=== PATIENT | male | born 1965 | race Caucasian/White ===

== ENCOUNTER 2016-10-08 10:41 | Inpatient (IN) | payer OTHER ==
[2016-10-08] VITALS (11 sets, daily range): BP systolic 120–186; BP diastolic 78–115; PULSE 44–54; RESP 16–20; TEMP 96.6–98.2; O2SAT 96–99
[~2016-10-08] VITALS: Ht 175.3 cm; Wt 84.7 kg
[2016-10-08] MEDS ORDERED: ASPIRIN 325 MG TAB PO ONE ×2 (11:00→11:15)
[2016-10-08] MEDS ORDERED: NITROGLYCERIN 0.4 MG SL 25 TABS/BTL SL ONE ×2 (11:00→11:15)
[2016-10-08 11:17] LABS: BASOPHIL % 0.5 % (0.0-2.0); EOSINOPHIL # 0.1 TH/MM3 (0-0.4); EOSINOPHIL % 0.9 % (0.0-4.0); HEMATOCRIT 46.3 % (39.0-51.0); HEMO FLAGS DIFF FINAL; LYMPH % 21.6 % (9.0-44.0); LYMPHOCYTE # 1.6 TH/MM3 (1.0-4.8); MEAN CELL VOLUME 89.1 FL (80.0-100.0); MEAN CORPUSCULAR HEMOGLOBIN 31.7 PG (27.0-34.0); MEAN CORPUSCULAR HGB CONC 35.6 % (32.0-36.0); MONO % 7.3 % (0.0-8.0); NEUT % 69.7 % (16.0-70.0); PLATELET COUNT 206 TH/MM3 (150-450); RED BLOOD COUNT 5.19 MIL/MM3 (4.50-5.90); RED CELL DISTRIBUTION WIDTH 12.3 % (11.6-17.2); WHITE BLOOD COUNT 7.2 TH/MM3 (4.0-11.0)
[2016-10-08 11:26] LABS: APTT (PATIENT) 26.4 SEC (24.3-30.1); PROTHROMBIN TIME - PATIENT 10.5 SEC (9.8-11.6)
[2016-10-08 12:03] LABS: BICARBONATE 28.7 MEQ/L (21.0-32.0); POTASSIUM 4.3 MEQ/L (3.5-5.1)
--- NOTE | 2016-10-08 12:05 | RADRPT ---
EXAM DATE/TIME: 10/08/2016 10:55 [place] COMPARISON: No previous studies available for comparison. INDICATIONS : Chest pain. Shortness of breath. MEDICAL HISTORY : None. SURGICAL HISTORY : None. ENCOUNTER: Initial ACUITY: 1 day PAIN SCORE: 3/10 LOCATION: Bilateral chest FINDINGS: The lungs are clear without infiltrate, nodule, or mass. There is no appreciable pleural effusion fo r technique. Heart and mediastinum are unremarkable. CONCLUSION: No acute cardiopulmonary disease. Roni Beckham MD on October 08, 2016 at 12:02 Board Certified Radiologist. This report was verified electronically.
--- NOTE | 2016-10-08 12:15 | PD ---
HPI Chief Complaint: Chest Pain Time Seen by Provider: 12:10 Travel History International Travel<30 days: No Contact w/Intl Traveler<30days: No Traveled to known affect area: No History of Present Illness HPI 51-year-old male that presents to the ED for evaluation of left-sided chest pain. Per patient she's had this for about an hour. Per patient he was riding a bicycle when this started. Per patient he is pretty active and his heart rate is always slow because of his level of activity. Per patient he does have significant history in the family of cardiac disease including his father having from a heart attack at his age. Patient is reports a remote history of smoking 10 anymore. Patient states that he has no history of hypertension or high cholesterol. Takes no aspirin or any medications of any kind. He is here from [place] visiting for work. He denies any injuries. Per patient he was doing his normal biking when he started developing the pain was like a pressure which shortness of breath and radiation to the left arm. Per patient the pain was 6 out of 10. Exercising and motion made it worse. He has an allergy to penicillin. Denies any other medical problems at this time. No injury. PFS Past Medical History Cardiovascular Problems: Yes (bradycardia) ?: Not Social History Alcohol Use: No Tobacco Use: No (quit 30 years ago. ) Substance Use: No Allergies-Medications (Allergen,Severity, Reaction): Coded Allergies: Penicillin (Verified Allergy, Unknown, 10/08/16) Review of Systems Except as stated in HPI: all other systems reviewed are Neg Physical Exam Narrative GENERAL: SKIN: Warm and dry. HEAD: Atraumatic. Normocephalic. EYES: Pupils equal and round. No scleral icterus. No injection or drainage. ENT: No nasal bleeding or discharge. Mucous membranes pink and moist. Tongue is midline. No uvula deviation. NECK: Trachea midline. No JVD. CARDIOVASCULAR: Regular rate and rhythm. No murmurs, S3, S4. RESPIRATORY: No accessory muscle use. Clear to auscultation. Breath sounds equal bilaterally. GASTROINTESTINAL: Abdomen soft, non-tender, nondistended. Hepatic and splenic margins not palpable. MUSCULOSKELETAL: Extremities without clubbing, cyanosis, or edema. No obvious deformities. Full range of motion of the upper and lower extremities bilaterally. 2+ pulses bilaterally. NEUROLOGICAL: Awake and alert. No obvious cranial nerve deficits. Motor grossly within normal limits. Five out of 5 muscle strength in the arms and legs. Normal speech. PSYCHIATRIC: Appropriate mood and affect; insight and judgment normal. Data Data Last Documented VS Vital Signs Date Time Temp Pulse Resp B/P Pulse Ox O2 Delivery O2 Flow Rate FiO2 10/08/16 11:43 44 18 120/78 98 Room Air 10/08/16 10:56 97.9 10/08/16 10:55 2 Orders Electrocardiogram (10/08/16 10:49) Basic Metabolic Panel (Bmp) (10/08/16 10:49) Ckmb (Isoenzyme) Profile (10/08/16 10:49) Complete Blood Count With Diff (10/08/16 10:49) Magnesium (Mg) (10/08/16 10:49) Prothrombin Time / Inr (Pt) (10/08/16 10:49) Act Partial Throm Time (Ptt) (10/08/16 10:49) Troponin I (10/08/16 10:49) Chest, Single Ap (10/08/16 10:49) Ecg Monitoring (10/08/16 10:49) Bilateral Bp Monitoring (10/08/16 10:49) Iv Access Insert/Monitor (10/08/16 10:49) Oximetry (10/08/16 10:49) Oxygen Administration (10/08/16 10:49) Aspirin (Aspirin) (10/08/16 11:00) Nitroglycerin Sl (Nitrostat Sl) (10/08/16 11:00) Aspirin (Aspirin) (10/08/16 11:15) Nitroglycerin Sl (Nitrostat Sl) (10/08/16 11:15) Admit Order (Ed Use Only) (10/08/16 12:08) Labs Laboratory Tests Test 10/08/16 11:05 White Blood Count 7.2 TH/MM3 Red Blood Count 5.19 MIL/MM3 Hemoglobin 16.5 GM/DL Hematocrit 46.3 % Mean Corpuscular Volume 89.1 FL Mean Corpuscular Hemoglobin 31.7 PG Mean Corpuscular Hemoglobin 35.6 % Concent Red Cell Distribution Width 12.3 % Platelet Count 206 TH/MM3 Mean Platelet Volume 8.1 FL Neutrophils (%) (Auto) 69.7 % Lymphocytes (%) (Auto) 21.6 % Monocytes (%) (Auto) 7.3 % Eosinophils (%) (Auto) 0.9 % Basophils (%) (Auto) 0.5 % Neutrophils # (Auto) 5.0 TH/MM3 Lymphocytes # (Auto) 1.6 TH/MM3 Monocytes # (Auto) 0.5 TH/MM3 Eosinophils # (Auto) 0.1 TH/MM3 Basophils # (Auto) 0.0 TH/MM3 CBC Comment DIFF FINAL Differential Comment Prothrombin Time 10.5 SEC Prothromb Time International 1.0 RATIO Ratio Activated Partial 26.4 SEC Thromboplast Time Sodium Level 139 MEQ/L Potassium Level 4.3 MEQ/L Chloride Level 105 MEQ/L Carbon Dioxide Level 28.7 MEQ/L Anion Gap 5 MEQ/L Blood Urea Nitrogen 11 MG/DL Creatinine 1.19 MG/DL Estimat Glomerular Filtration 64 ML/MIN Rate Random Glucose 108 MG/DL Calcium Level 8.9 MG/DL Magnesium Level 2.0 MG/DL Total Creatine Kinase 79 U/L Troponin I 0.02 NG/ML MDM Medical Decision Making Medical Screen Exam Complete: Yes Emergency Medical Condition: Yes Medical Record Reviewed: Yes Interpretation(s) CBC & BMP Diagram 10/08/16 11:05 troponin negative ckmb negative EKG shows sinus bradycardia with no sign of acute ischemia. Read by me and attending. Chest x-ray negative for acute disease. Differential Diagnosis ACS versus chest pain versus atypical chest pain versus pneumonia versus pneumothorax Narrative Course 51-year-old male that presents to the ED for evaluation of chest pain. Patient was properly examined and was found to have signs and symptoms concerning for ACS. Patient does have significant history including strong family history of cardiac disease as well as age. At this time I recommend cardiac workup. Patient's agreement with this. Initial EKG and labs were essentially unremarkable. Chest x-ray negative. At this time I do recommend admission to the chest pain center because of his risk factors. Patient was given aspirin and nitroglycerin here with relief of the pain but he still feels somewhat no back to normal. Patient was told of recommendation for admission for chest pain center and evaluation by caseworker protective services and he is in agreement with this plan. Patient was admitted to the chest pain center. Procedures EKG Prior to Arrival: No Diagnosis Primary Impression: Chest pain in adult Admitting Information Admitting Physician Requests: Observation Shane Miner Oct 08, 2016 12:15
[2016-10-08] MEDS ORDERED: SODIUM CHLORIDE 0.9% FLUSH 10 ML FLUSH IV FLUSH PRN (12:30)
[2016-10-08] MEDS ORDERED: ONDANSETRON HCL 4 MG/2 ML VIAL IV PRN (12:30)
[2016-10-08] MEDS ORDERED: ACETAMINOPHEN 500 MG CPLT PO PRN (12:30)
[2016-10-08] MEDS ORDERED: NITROGLYCERIN 0.4 MG SL 25 TABS/BTL SL PRN (12:30)
[2016-10-08] MEDS ORDERED: NITROGLYCERIN 2% OINT 1 GM PACKET TOPICAL SCH (14:30)
[2016-10-08 15:08] LABS: CREATINE KINASE 123 U/L (39-308)
--- NOTE | 2016-10-08 15:12 | HHI.HP ---
HPI Primary Care Physician No Primary Care Physician Chief Complaint Chest tightness History of Present Illness 51-year-old male with no significant past medical history presents to the emergency room for further evaluation of chest pain. Onset this morning approximately 9:30 while cycling. Location substernal described as tightness. [place] as though he could not "push himself" to continue cycling or take a deep breath. Normally cycles 20 miles daily without any chest discomfort or difficulty breathing. Chest discomfort began after cycling 3 blocks riding at a slow pace (12-15mph). Radiation to left shoulder however described pain left shoulder and left arm as "aching." He slowed down his pace and cycled back to his hotel. Pain continued rated 5/10. Once back in hotel, felt he was going to pass out and extremely fatigued. He is from [place] and a friend drive him to urgent care. Urgent care immediately sent him to ER. No associated symptoms nausea, vomiting, or diaphoresis. Nitroglycerin sublingual "helped some." Currently he is chest pain-free. Duration of chest discomfort approximately 2 hours, with the most intense pain initially lasting 20 minutes, rate 7/10. Positive family history-father at age 52 from heart attack. No known diabetes, hypertension, or hyperlipidemia. Last week he experienced 2 brief episodes of shortness of breath while cycling on two separate occasions. Review of Systems General: Has been in his general state of health. He is visiting here from [place]. He is a assistant softball coach. Stain until Tuesday. No fatigue,weakness, fever, chills, or recent illness. HEENT: No SZYMANSKI, no vision changes, no nasal congestion or drainage, no dysphasia CV: As stated above. No current chest pain or pressure. RESP: No SOB, cough, wheeze, asthma, recent URI. GI: No nausea, vomiting, bowel changes. . : No dysuria, urgency, or frequency EXT: No lower leg edema, no paraesthesias MS: No discomfort or change in ROM NEURO: No change in memory, dizziness, difficulty with balance, LOC, motor/ sensory deficits PSYCH: No anxiety, depression, or situational stress. SKIN: No rashes, no concerning lesions Past Family Social History Allergies: Coded Allergies: Penicillin (Verified Allergy, Unknown, 10/08/16) Past Medical History None Past Surgical History None Reported Medications Does not require any prescription medications. Active Ordered Medications Current Medications Medications (Trade) Dose Ordered Sig/Octavia Route Start Time Stop Time Status Last Admin (Tylenol) 500 mg Q4H PRN PO 10/08/16 12:30 (Zofran Inj) 4 mg Q6H PRN IV 10/08/16 12:30 (Nitrostat Sl) 0.4 mg Q5M PRN SL 10/08/16 12:30 (Aspirin) 325 mg DAILY PO 10/09/16 09:00 (Nitroglycerin 2% Oint) 0.5 inch Q6HR TOPICAL 10/08/16 14:30 Family History Father at age 52 from MS. Endorses his father "did not take care of himself and smoke and drink alcohol excessively." Mother is alive and well. No cardiac issues. Social History No known diabetes, hyperlipidemia, or hypertension. Lipid panel last checked 3 years ago. Remote tobacco use quit 30 years ago. Denies any alcohol or illegal drug use. He is single. Visiting from [place]. Past cardiac testing No recent stress testing. Exercise stress test approximately 15 years ago. Never required a coke drawer. Physical Exam Vital Signs Vital Signs Date Time Temp Pulse Resp B/P Pulse Ox O2 Delivery O2 Flow Rate FiO2 10/08/16 14:13 96.6 48 20 167/98 99 10/08/16 14:04 97 21 10/08/16 11:43 44 18 120/78 98 Room Air 10/08/16 10:58 45 165/103 143/103 10/08/16 10:56 97.9 44 20 186/108 98 10/08/16 10:55 99 Nasal Cannula 2 10/08/16 10:55 46 18 165/103 98 Nasal Cannula 2 10/08/16 10:55 47 18 99 Nasal Cannula 2 10/08/16 10:55 18 99 Nasal Cannula 2 10/08/16 10:48 46 18 165/103 98 Physical Exam GENERAL: Alert WN, WD, NAD, pleasant, male HEAD: NC, AT EYES: Sclera clear, conjunctiva without injection, pupils equal and round ENT: Mucous membranes pink and moist, no nasal discharge or bleeding NECK: Supple, no masses, trachea midline CV: RRR, without murmur, rub, gallop, no JVD, S1-S2 no S3-S4. No carotid or femoral bruits. RESP: Clear lungs throughout bilateral, no crackles, wheeze, rhonchi, symmetrical chest rise, nonlabored, able to speak in full sentences ABD: Soft, NT, ND, no masses, positive bowel tones EXT: Pulses +24, no dependent edema MS: Normal tone 4 extremities, nontender, no obvious deformities, full range of motion NEURO: CN II through CN XII grossly intact, motor strength 5/5, gait WNL PSYCH: A+O 3, pleasant affect, appropriate speech, appropriate mood and affect , insight and judgment SKIN: Normal turgor, normal texture, no lesions, no rashes, brisk cap refill, even hair distribution Laboratory Laboratory Tests Test 10/08/16 11:05 White Blood Count 7.2 Red Blood Count 5.19 Hemoglobin 16.5 Hematocrit 46.3 Mean Corpuscular Volume 89.1 Mean Corpuscular Hemoglobin 31.7 Mean Corpuscular Hemoglobin 35.6 Concent Red Cell Distribution Width 12.3 Platelet Count 206 Mean Platelet Volume 8.1 Neutrophils (%) (Auto) 69.7 Lymphocytes (%) (Auto) 21.6 Monocytes (%) (Auto) 7.3 Eosinophils (%) (Auto) 0.9 Basophils (%) (Auto) 0.5 Neutrophils # (Auto) 5.0 Lymphocytes # (Auto) 1.6 Monocytes # (Auto) 0.5 Eosinophils # (Auto) 0.1 Basophils # (Auto) 0.0 CBC Comment DIFF FINAL Differential Comment Prothrombin Time 10.5 Prothromb Time International 1.0 Ratio Activated Partial 26.4 Thromboplast Time Sodium Level 139 Potassium Level 4.3 Chloride Level 105 Carbon Dioxide Level 28.7 Anion Gap 5 Blood Urea Nitrogen 11 Creatinine 1.19 Estimat Glomerular Filtration 64 Rate Random Glucose 108 Calcium Level 8.9 Magnesium Level 2.0 Total Creatine Kinase 79 Troponin I 0.02 Result Diagram: 10/08/16 1105 10/08/16 1105 Imaging Last Impressions Chest X-Ray 10/08/16 1049 Signed Impressions: Service Date/Time: Saturday, October 08, 2016 10:55 - CONCLUSION: No acute cardiopulmonary disease. Roni Beckham MD Course EKGs 2 EKGs show normal sinus bradycardic rhythm with nonspecific ST and T-wave changes Assessment and Plan Assessment and Plan #1 Chest painadmitted to chest pain center. Plans initially were to rule out with 3 sets of EKGs, cardiac enzymes, monitor overnight, and perform a chemical stress test in the a.m. Second troponin is now elevated at 1.95. Consult to on -call cardiology as well as hospitalist. Call out to on-call coke drawer. This is been discussed with patient in length. Nitroglycerin topical 0.5 inch every 6 hours. Patient is bradycardiac, will not order beta marti at this time. Keep nothing by mouth at this time until seen by coke drawer. 17:[address] Geronimo. requesting heparin protocol to be ordered and keep patient NPO at this time. Sarah August Oct 08, 2016 15:11
[2016-10-08 15:39] LABS: CKMB 8.6 NG/ML (0.5-3.6)
[2016-10-08] MEDS ORDERED: HEPARIN SODIUM - IV 10,000 UNITS/10 ML VIAL IV ONE (17:30)
[2016-10-08 18:08] LABS: CREATINE KINASE 160 U/L (39-308)
[2016-10-08] MEDS: HEPARIN-D5W INJ 250 ML IV SCH (18:18)
[2016-10-08 18:35] LABS: CKMB 13.9 NG/ML (0.5-3.6)
[2016-10-08] MEDS ORDERED: MIDAZOLAM HCL 2 MG/2 ML VIAL ONE (18:46)
[2016-10-08] MEDS ORDERED: HEPARIN-NS/PF INJ 500 ML ONE (18:46)
[2016-10-08] MEDS ORDERED: VERAPAMIL HCL 5 MG/2 ML VIAL ONE (18:57)
[2016-10-08] MEDS ORDERED: HEPARIN SODIUM - IV 10,000 UNITS/10 ML VIAL ONE (18:58)
[2016-10-08] MEDS ORDERED: PHENYLEPHRINE HCL 10 MG/ML VIAL ONE (19:16)
[2016-10-08] MEDS ORDERED: PHENYLEPH/NS 1000 MCG/10 ML SYR ONE (19:17)
--- NOTE | 2016-10-08 19:24 | EKG ---
Date Performed: 10/08/2016 Time Performed: 10:50:23 PTAGE: 51 years EKG: SINUS BRADYCARDIA Nonspecific ST-T wave changes INTERPRETATION BASED ON A DEFAULT AGE OF 39 YEARS NO PREVIOUS TRACING DOCTOR: Alex Williamson Interpretating Date/Time 10/08/2016 19:22:59
[2016-10-08] MEDS ORDERED: HEPARIN-D5W INJ 250 ML ONE (19:27)
[2016-10-08] MEDS ORDERED: IOHEXOL 350 MG/ML 50 ML BTL (for Cath Lab) OTHER ONE (20:00)
[2016-10-08] MEDS ORDERED: SODIUM CHLORIDE 0.9% FLUSH 10 ML FLUSH IV FLUSH SCH (21:00)
[2016-10-08] MEDS: ATORVASTATIN 80 MG TAB PO SCH (21:47)
[2016-10-08] MEDS: NITROGLYCERIN 2% OINT 1 GM PACKET TOPICAL SCH (21:47)
--- NOTE | 2016-10-08 22:04 | MB ---
cc: DOMINGO CONNOLLY DO DATE OF CONSULTATION 10/08/16 REASON FOR CONSULTATION Chest pain and stenting. HISTORY OF PRESENT ILLNESS Quentin Doherty is a pleasant 51-year-old male who presented to [facility] on October 08, 2016 due to chest pain. He is here visiting from [place] for a conference and he decided that he would go cycling. At around 09:30 this morning during his cycling, he started getting central chest pain which was tight in nature. He normally rides up to 20 miles a day without chest discomfort or difficulty, although the past few weeks it has been more difficult than usual. He was only three blocks into his ride when he started having chest pain today that radiated to his left shoulder which was aching in nature. He slow down his speed and cycled back to his hotel. Pain was still 5/10 and he felt like he was going to pass out and so he had his friend drive him to an Urgent Care. Urgent Care immediately sent him to the emergency room. Nitroglycerin seemed to help somewhat on arrival. When seeing him he is currently chest pain free. PAST MEDICAL HISTORY Denies. PAST SURGICAL HISTORY Denies. ALLERGIES PENICILLIN MEDICATIONS Denies. FAMILY HISTORY Father had bypass at the age of 45 and from an CT at the age of 52. He states that his father did not take care of himself and he smoked and drank excessively. He has two brothers that have high blood pressure. Mother is alive and well with no cardiac issues. SOCIAL HISTORY Remote tobacco use, quitting around 30 years ago. Denies alcohol or illicit drug abuse. He is visiting from [place]. He did have a cholesterol panel done around three years ago and states that his bad cholesterol was a little high but his good cholesterol was low. REVIEW OF SYSTEMS 14-systems were reviewed including osteopathic. Pertinent positives and negatives above, otherwise negative. PHYSICAL EXAMINATION VITAL SIGNS: Temperature 96.6, heart rate 48, blood pressure 167/98, respirations 20, pulse ox 99% on room air. GENERAL: The patient appears well in no acute distress, alert awake and oriented x3. HEENT: Extraocular muscles intact. Mucous membranes moist. NECK: Supple. No JVD at 45 degrees. No carotid bruits heard bilaterally. Carotid upstroke is brisk in nature. HEART: Regular rhythm but bradycardic in nature. Positive first and second heart sounds with no murmurs, gallops or rubs. PMI is nondisplaced. LUNGS: Clear to auscultation bilaterally. No wheezes, rales or rhonchi. ABDOMEN: Soft, nontender, nondistended, no organomegaly noted. EXTREMITIES: No clubbing, cyanosis or edema. Femoral and distal pulses intact bilaterally. NEUROLOGIC: No focal deficits. SKIN: Warm, dry and intact. OSTEOPATHIC: No kyphoscoliosis, lordosis or paraspinal tender points. LABORATORY FINDINGS Hemoglobin 16.5, hematocrit 46.3, platelets 206. Potassium 4.3, BUN 11, creatinine 1.19, troponin 0.02 increasing to 4.75. CARDIOLOGY STUDIES Electrocardiogram (October 08, 2016 at 1714) sinus bradycardia, nonspecific ST-T wave changes. IMPRESSION 1. Chest pain concerning for typical angina. 2. NSTEMI most likely type 1 3. Baseline bradycardia, most likely due to athletic heart. 4. Family history of premature coronary artery disease, although his father did not take care of himself 5. Extremely remote tobacco abuse. RECOMMENDATIONS 1. Mr. Doherty presented with chest pain and has an elevation of his troponins signifying an NSTEMI. Because of this, he was recommended cardiac catheterization. Risks, benefits and alternatives were explained to him and he consented as such. 2. We will check a 2-D echo to look at his overall left ventricular function, cardiac structure and possible valvolpathies. 3. Further recommendations will be made based on coronary visualization. Thank you for allowing me to see Quentin Doherty. If there are any questions, please do not hesitate to call. Domingo Connolly DO VGP/SA /7:51 PM /9:45 PM MTDKelly
[2016-10-08] MEDS ORDERED: HEPARIN SODIUM - IV 10,000 UNITS/10 ML VIAL IV PRN (23:30)
[2016-10-09] VITALS (28 sets, daily range): BP systolic 120–154; BP diastolic 78–98; PULSE 44–79; RESP 16–17; TEMP 97.9–98.2; O2SAT 93–97
[2016-10-09] MEDS: NITROGLYCERIN 2% OINT 1 GM PACKET TOPICAL SCH ×4 (03:00→22:36)
--- NOTE | 2016-10-09 06:28 | MA ---
cc: DOMINGO CONNOLLY DO DATE: October 08, 2016 PROCEDURE Left heart catheterization, coronary angiogram, moderate sedation 25 minutes. PREPROCEDURE DIAGNOSIS N=STEMI, angina concerning for significant coronary insufficiency. POSTPROCEDURE DIAGNOSIS N=STEMI, Multivessel coronary artery disease. MEDICATIONS 1. Versed 1 mg. 2. Fentanyl 25 mcg. 3. Verapamil 2.5 mg. 4. Nitro 200 mcg. 5. Heparin 3000 units. CONTRAST USED 45 cc. FLUOROSCOPY: 4.4 minutes SEDATION: Moderate sedation 25 minutes PROCEDURAL SUMMARY: Quentin Doherty is a pleasant 51-year-old male who presented to [facility] due to significant chest pain. He was found to have an elevated troponin and because of his chest pain and elevation of troponin he was suggested to undergo cardiac catheterization. Risks, benefits and alternatives were explained to him and he consented as such. He was brought to lab and prepped in the usual sterile fashion. Right radial artery was accessed using modified Seldinger technique and placement of a 5/6 Amharic sheath. This was easily aspirated and flushed. JR-4 was then advanced over a J-wire into the left ventricle and left ventricular end-diastolic pressure was recorded. This was pulled back across the aortic valve showing no significant gradient of aortic stenosis. JR-4 was used for selective angiography of the right coronary system. This was exchanged for a JL-3.5 which was used for selective angiography of the left coronary system. The JL-3.5 was removed over a J-wire and radial band was placed over the arterial ostomy site for hemostasis. The patient left the ammunition assembly laborer cardiovascularly stable. FINDINGS Left main, normal size with no significant disease. Left anterior descending, overall normal-appearing vessel. The proximal to midportion across the first diagonal has significant disease diffusely of 80% which is at least 20 mm long. The distal part of the left anterior descending has no significant disease. The left anterior descending gives off a small first diagonal and a larger second diagonal with no significant disease. Left circumflex, is a large normal-appearing vessel with a 70% lesion in the midportion. He gives off three major obtuse marginals with no significant disease. Ramus, The ramus appears to be a normal-size vessel and has a 95% proximal lesion mows noted in the right anterior oblique caudal and Right anterior oblique cranial views. Right coronary artery is a normal-size vessel with a 99% lesion in the midportion. There is a 70% lesion in the distal portion. It gives off a posterior descending artery which has a 95% lesion in a small vessel distally. Left ventricular end-diastolic pressure 16. IMPRESSION 1. Chest pain concerning for coronary insufficiency. 2. N-STEMI type 1. 3. Multivessel coronary artery disease with significant disease as above. 4. Baseline bradycardia, most likely due to athletic heart. RECOMMENDATIONS 1. Because Mr. Doherty has multivessel coronary artery disease including the proximal and mid left anterior descending, ramus, left circumflex and right coronary artery. My recommendation is that he undergo coronary artery bypass. grafting. 2. I spoke with CT surgery will evaluate him tomorrow. 3. Because of the significance of his disease as well as his elevated troponin. We will plan on place him back on a heparin drip 1 hour after his TR band is removed. 4. We will check a 2-D echo to look at his overall left ventricular function, cardiac structure and possible valvopathies. 5. Beta-marti will be avoided at this time due to his baseline bradycardia. Thank you for allowing me to see Quentin Doherty, if there are any questions, please do not hesitate to call. Domingo Connolly DO VGP/mh /8:00 PM /6:18 AM
[2016-10-09 08:05] LABS: AUTOMATED NEUTROPHIL # 4.4 TH/MM3 (1.8-7.7); BASOPHIL % 0.2 % (0.0-2.0); EOSINOPHIL # 0.1 TH/MM3 (0-0.4); EOSINOPHIL % 1.3 % (0.0-4.0); HEMATOCRIT 42.6 % (39.0-51.0); HEMO FLAGS DIFF FINAL; LYMPH % 25.8 % (9.0-44.0); LYMPHOCYTE # 1.7 TH/MM3 (1.0-4.8); MEAN CELL VOLUME 89.3 FL (80.0-100.0); MEAN CORPUSCULAR HEMOGLOBIN 31.2 PG (27.0-34.0); MONO % 7.2 % (0.0-8.0); NEUT % 65.5 % (16.0-70.0); PLATELET COUNT 183 TH/MM3 (150-450); RED BLOOD COUNT 4.77 MIL/MM3 (4.50-5.90); RED CELL DISTRIBUTION WIDTH 12.4 % (11.6-17.2); WHITE BLOOD COUNT 6.7 TH/MM3 (4.0-11.0)
[2016-10-09 08:06] LABS: APTT (PATIENT) 33.2 SEC (24.3-30.1)
[2016-10-09 08:32] LABS: POTASSIUM 3.8 MEQ/L (3.5-5.1)
[2016-10-09] MEDS: HEPARIN SODIUM - IV 10,000 UNITS/10 ML VIAL IV PRN ×3 (08:37→22:35)
[2016-10-09] MEDS ORDERED: INSULIN REGULAR (IV INFUSION) 100 UNITS in SODIUM CHLORIDE 0.9% INJ 100 ML IV SCH (08:45)
[2016-10-09] MEDS ORDERED: PAPAVERINE INJ 60 MG, NITROGLYCERIN INJ 100 MCG, DILTIAZEM INJ 100 MG in SODIUM CHLORID... IRRIGATION SCH (08:45)
[2016-10-09] MEDS ORDERED: SODIUM CHLORIDE 0.9% FLUSH 10 ML FLUSH IV FLUSH PRN (08:45)
[2016-10-09] MEDS ORDERED: VANCOMYCIN INJ 1,250 MG in SODIUM CHLOR 0.9% 250 ML INJ 250 ML IV SCH (08:45)
[2016-10-09] MEDS ORDERED: VANCOMYCIN INJ 1,000 MG in SODIUM CHLORIDE 0.9% IRR BTL 1,000 ML IRRIGATION SCH (08:45)
[2016-10-09] MEDS ORDERED: CHLORHEXIDINE GLUCONATE 4% SOLN 120 ML BTL TOPICAL SCH (08:45)
[2016-10-09] MEDS ORDERED: ASPIRIN 81 MG CHEW TAB CHEW SCH (09:00)
[2016-10-09] MEDS: SODIUM CHLORIDE 0.9% FLUSH 10 ML FLUSH IV FLUSH SCH ×2 (09:00→22:36)
[2016-10-09] MEDS ORDERED: ASPIRIN 325 MG TAB PO SCH (09:00)
[2016-10-09] MEDS: MUPIROCIN 2% OINT 1 APPLIC/GM SYR EACH NARE SCH ×2 (09:34→22:35)
--- NOTE | 2016-10-09 10:04 | PD.CAR.PN ---
CVT Progress Note Subjective/Hospital Course: RISK SCORES About the STS Risk Calculator Procedure: CAB Only Risk of Mortality: 0.419% Morbidity or Mortality: 6.829% Long Length of Stay: 1.684% Short Length of Stay: 73.265% Permanent Stroke: 0.318% Prolonged Ventilation: 4.304% DSW Infection: 0.189% Renal Failure: 1.042% Reoperation: 3.316 ECHO pending to evaluate EF and valve function. Objective: Vital Signs Date Time Temp Pulse Resp B/P Pulse Ox O2 Delivery O2 Flow Rate FiO2 10/09/16 10:00 16 10/09/16 09:00 58 10/09/16 08:00 46 10/09/16 07:00 98.0 51 16 135/81 96 10/09/16 07:00 50 10/09/16 06:34 48 10/09/16 05:01 95 10/09/16 05:00 44 10/09/16 04:00 47 10/09/16 03:00 97.9 57 16 120/78 95 10/09/16 03:00 45 10/09/16 02:00 45 10/09/16 01:00 46 10/09/16 00:00 48 10/08/16 23:00 48 10/08/16 23:00 98.0 50 17 146/96 96 10/08/16 22:00 48 10/08/16 21:00 54 10/08/16 20:00 54 10/08/16 20:00 98.2 52 16 169/115 97 10/08/16 14:13 96.6 48 20 167/98 99 10/08/16 14:04 97 21 10/08/16 11:43 44 18 120/78 98 Room Air 10/08/16 10:58 45 165/103 143/103 10/08/16 10:56 97.9 44 20 186/108 98 10/08/16 10:55 99 Nasal Cannula 2 10/08/16 10:55 46 18 165/103 98 Nasal Cannula 2 10/08/16 10:55 47 18 99 Nasal Cannula 2 10/08/16 10:55 18 99 Nasal Cannula 2 10/08/16 10:48 46 18 165/103 98 Labs: Laboratory Tests Test 10/09/16 07:26 White Blood Count 6.7 TH/MM3 (4.0-11.0) Red Blood Count 4.77 MIL/MM3 (4.50-5.90) Hemoglobin 14.9 GM/DL (13.0-17.0) Hematocrit 42.6 % (39.0-51.0) Mean Corpuscular Volume 89.3 FL (80.0-100.0) Mean Corpuscular Hemoglobin 31.2 PG (27.0-34.0) Mean Corpuscular Hemoglobin 35.0 % Concent (32.0-36.0) Red Cell Distribution Width 12.4 % (11.6-17.2) Platelet Count 183 TH/MM3 (150-450) Mean Platelet Volume 8.0 FL (7.0-11.0) Neutrophils (%) (Auto) 65.5 % (16.0-70.0) Lymphocytes (%) (Auto) 25.8 % (9.0-44.0) Monocytes (%) (Auto) 7.2 % (0.0-8.0) Eosinophils (%) (Auto) 1.3 % (0.0-4.0) Basophils (%) (Auto) 0.2 % (0.0-2.0) Neutrophils # (Auto) 4.4 TH/MM3 (1.8-7.7) Lymphocytes # (Auto) 1.7 TH/MM3 (1.0-4.8) Monocytes # (Auto) 0.5 TH/MM3 (0-0.9) Eosinophils # (Auto) 0.1 TH/MM3 (0-0.4) Basophils # (Auto) 0.0 TH/MM3 (0-0.2) CBC Comment DIFF FINAL Differential Comment Activated Partial 33.2 SEC Thromboplast Time (24.3-30.1) Sodium Level 140 MEQ/L (136-145) Potassium Level 3.8 MEQ/L (3.5-5.1) Chloride Level 106 MEQ/L (98-107) Carbon Dioxide Level 25.0 MEQ/L (21.0-32.0) Anion Gap 9 MEQ/L (5-15) Blood Urea Nitrogen 13 MG/DL (7-18) Creatinine 1.09 MG/DL (0.60-1.30) Estimat Glomerular Filtration 71 ML/MIN (>89) Rate Random Glucose 101 MG/DL (74-106) Calcium Level 8.6 MG/DL (8.5-10.1) Result Diagram: 10/09/16 0726 10/09/16 0726 Robert Ball MD Oct 09, 2016 10:04
--- NOTE | 2016-10-09 10:06 | HHI.PR ---
Subjective Remarks Follow up on multiple vessels CAD plan for CABG in the morning Discussed with the nurse Patient is having carotid ultrasound, no chest pain at this point Objective Vitals Vital Signs Date Time Temp Pulse Resp B/P Pulse Ox O2 Delivery O2 Flow Rate FiO2 10/09/16 10:00 16 10/09/16 09:00 58 10/09/16 08:00 46 10/09/16 07:00 98.0 51 16 135/81 96 10/09/16 07:00 50 10/09/16 06:34 48 10/09/16 05:01 95 10/09/16 05:00 44 10/09/16 04:00 47 10/09/16 03:00 97.9 57 16 120/78 95 10/09/16 03:00 45 10/09/16 02:00 45 10/09/16 01:00 46 10/09/16 00:00 48 10/08/16 23:00 48 10/08/16 23:00 98.0 50 17 146/96 96 10/08/16 22:00 48 10/08/16 21:00 54 10/08/16 20:00 54 10/08/16 20:00 98.2 52 16 169/115 97 10/08/16 14:13 96.6 48 20 167/98 99 10/08/16 14:04 97 21 10/08/16 11:43 44 18 120/78 98 Room Air 10/08/16 10:58 45 165/103 143/103 10/08/16 10:56 97.9 44 20 186/108 98 10/08/16 10:55 99 Nasal Cannula 2 10/08/16 10:55 46 18 165/103 98 Nasal Cannula 2 10/08/16 10:55 47 18 99 Nasal Cannula 2 10/08/16 10:55 18 99 Nasal Cannula 2 10/08/16 10:48 46 18 165/103 98 I/O 10/08/16 10/08/16 10/08/16 10/09/16 10/09/16 10/09/16 07:00 15:00 23:00 07:00 15:00 23:00 Intake Total 1030 ml Output Total 980 ml Balance 50 ml Intake Oral 480 ml IV Total 550 ml Output Urine Total 980 ml Result Diagram: 10/09/1672510/09/16725 Objective Remarks GENERAL: This is a well-nourished, well-developed patient, in no apparent distress. SKIN: No rashes, warm and dry HEAD: Atraumatic. Normocephalic. EYES: Pupils equal round and reactive. Extraocular motions intact. No scleral icterus. ENT: Nose without bleeding, or drainage, Airway patent. NECK: Trachea midline. Supple CARDIOVASCULAR: Regular rate and rhythm without murmurs, gallops, or rubs. RESPIRATORY: Fair air entry bilaterally. No wheezes, rales, or rhonchi. GASTROINTESTINAL: Abdomen soft, non-tender, nondistended. Positive bowel sounds MUSCULOSKELETAL: Extremities without clubbing, cyanosis, or edema. Pedal pulses appreciated NEUROLOGICAL: Awake and alert. Moves all extremity. Normal speech.no focal neurological deficit A/P Assessment and Plan Chest pain Non-STEMI status post heart catheter >> multiple vessels CAD with proximal LAD Bradycardia most likely due to athletic heart History of premature CAD Remotely tobacco abuse DVT prophylaxis patient on heparin drip Plan:: Patient is status post left heart catheter Cardiology recommended CABG, CVS consulted Patient back on heparin drip per cardiology recommendation Avoid beta marti at this time due to bradycardia Aspirin, nitroglycerin, high intensity statin with Lipitor 80 mg started Further plan per certified hyperbaric technician Dez Gallo MD Oct 09, 2016 10:06
--- NOTE | 2016-10-09 10:23 | PD.CARD.PN ---
Subjective Subjective Remarks No chest pain, no shortness of breath Feels anxious overall for the procedure Objective Medications Current Medications Medications (Trade) Dose Ordered Sig/Octavia Route Start Time Stop Time Status Last Admin (Tylenol) 500 mg Q4H PRN PO 10/08/16 12:30 10/09/16 09:09 (Zofran Inj) 4 mg Q6H PRN IV 10/08/16 12:30 (Nitrostat Sl) 0.4 mg Q5M PRN SL 10/08/16 12:30 (Heparin Inj) 5,000 units UNSCH PRN IV 10/08/16 23:30 Heparin Sodium (Porcine) 2500 units 2,500 units UNSCH PRN IV 10/08/16 23:30 10/09/16 08:37 (Heparin-D5W Inj) 250 ml @ 0 mls/hr TITRATE IV 10/08/16 17:30 10/08/16 18:18 (Nitroglycerin 2% Oint) 0.5 inch Q6H TOPICAL 10/08/16 21:00 10/09/16 08:37 (Aspirin Chew) 81 mg DAILY CHEW 10/09/16 09:00 10/09/16 08:36 (Lipitor) 80 mg HS PO 10/08/16 21:00 10/08/16 21:47 (NS Flush) 2 ml BID IV FLUSH 10/09/16 09:00 10/09/16 09:00 (NS Flush) 2 ml UNSCH PRN IV FLUSH 10/09/16 08:45 (Bactroban Nasal 2% Oint) 1 applic BID EACH NARE 10/09/16 09:00 10/14/16 08:59 10/09/16 09:34 Vital Signs / I&O Vital Signs Date Time Temp Pulse Resp B/P Pulse Ox O2 Delivery O2 Flow Rate FiO2 10/09/16 10:00 70 10/09/16 10:00 16 10/09/16 09:00 58 10/09/16 08:00 46 10/09/16 07:00 98.0 51 16 135/81 96 10/09/16 07:00 50 10/09/16 06:34 48 10/09/16 05:01 95 10/09/16 05:00 44 10/09/16 04:00 47 10/09/16 03:00 97.9 57 16 120/78 95 10/09/16 03:00 45 10/09/16 02:00 45 10/09/16 01:00 46 10/09/16 00:00 48 10/08/16 23:00 48 10/08/16 23:00 98.0 50 17 146/96 96 10/08/16 22:00 48 10/08/16 21:00 54 10/08/16 20:00 54 10/08/16 20:00 98.2 52 16 169/115 97 10/08/16 14:13 96.6 48 20 167/98 99 10/08/16 14:04 97 21 10/08/16 11:43 44 18 120/78 98 Room Air 10/08/16 10:58 45 165/103 143/103 10/08/16 10:56 97.9 44 20 186/108 98 10/08/16 10:55 99 Nasal Cannula 2 10/08/16 10:55 46 18 165/103 98 Nasal Cannula 2 10/08/16 10:55 47 18 99 Nasal Cannula 2 10/08/16 10:55 18 99 Nasal Cannula 2 10/08/16 10:48 46 18 165/103 98 I/O 10/08/16 10/08/16 10/08/16 10/09/16 10/09/16 10/09/16 07:00 15:00 23:00 07:00 15:00 23:00 Intake Total 1030 ml Output Total 980 ml Balance 50 ml Intake Oral 480 ml IV Total 550 ml Output Urine Total 980 ml Physical Exam GENERAL: NAD, AAOx3 SKIN: Warm and dry. HEAD: Atraumatic. Normocephalic. EYES: Pupils equal and round. No scleral icterus. No injection or drainage. ENT: No nasal bleeding or discharge. Mucous membranes pink and moist. NECK: Trachea midline. No JVD. CARDIOVASCULAR: Regular rate and rhythm. RESPIRATORY: No accessory muscle use. Clear to auscultation. Breath sounds equal bilaterally. GASTROINTESTINAL: Abdomen soft, non-tender, nondistended. Hepatic and splenic margins not palpable. MUSCULOSKELETAL: Extremities without clubbing, cyanosis, or edema. No obvious deformities. Right radial no hematoma neurovascularly intact distally NEUROLOGICAL: Awake and alert. No obvious cranial nerve deficits. Motor grossly within normal limits. Five out of 5 muscle strength in the arms and legs. Normal speech. PSYCHIATRIC: Appropriate mood and affect; insight and judgment normal. Laboratory Laboratory Tests Test 10/08/16 10/08/16 10/08/16 10/09/16 11:05 14:10 17:10 07:26 White Blood Count 7.2 TH/MM3 6.7 TH/MM3 Red Blood Count 5.19 MIL/MM3 4.77 MIL/MM3 Hemoglobin 16.5 GM/DL 14.9 GM/DL Hematocrit 46.3 % 42.6 % Mean Corpuscular Volume 89.1 FL 89.3 FL Mean Corpuscular Hemoglobin 31.7 PG 31.2 PG Mean Corpuscular Hemoglobin 35.6 % 35.0 % Concent Red Cell Distribution Width 12.3 % 12.4 % Platelet Count 206 TH/MM3 183 TH/MM3 Mean Platelet Volume 8.1 FL 8.0 FL Neutrophils (%) (Auto) 69.7 % 65.5 % Lymphocytes (%) (Auto) 21.6 % 25.8 % Monocytes (%) (Auto) 7.3 % 7.2 % Eosinophils (%) (Auto) 0.9 % 1.3 % Basophils (%) (Auto) 0.5 % 0.2 % Neutrophils # (Auto) 5.0 TH/MM3 4.4 TH/MM3 Lymphocytes # (Auto) 1.6 TH/MM3 1.7 TH/MM3 Monocytes # (Auto) 0.5 TH/MM3 0.5 TH/MM3 Eosinophils # (Auto) 0.1 TH/MM3 0.1 TH/MM3 Basophils # (Auto) 0.0 TH/MM3 0.0 TH/MM3 CBC Comment DIFF FINAL DIFF FINAL Differential Comment Prothrombin Time 10.5 SEC Prothromb Time International 1.0 RATIO Ratio Activated Partial 26.4 SEC 33.2 SEC Thromboplast Time Sodium Level 139 MEQ/L 140 MEQ/L Potassium Level 4.3 MEQ/L 3.8 MEQ/L Chloride Level 105 MEQ/L 106 MEQ/L Carbon Dioxide Level 28.7 MEQ/L 25.0 MEQ/L Anion Gap 5 MEQ/L 9 MEQ/L Blood Urea Nitrogen 11 MG/DL 13 MG/DL Creatinine 1.19 MG/DL 1.09 MG/DL Estimat Glomerular Filtration 64 ML/MIN 71 ML/MIN Rate Random Glucose 108 MG/DL 101 MG/DL Calcium Level 8.9 MG/DL 8.6 MG/DL Magnesium Level 2.0 MG/DL Total Creatine Kinase 79 U/L 123 U/L 160 U/L Troponin I 0.02 NG/ML 1.95 NG/ML 4.75 NG/ML Creatine Kinase MB 8.6 NG/ML 13.9 NG/ML Assessment and Plan Problem List: (1) NSTEMI (non-ST elevated myocardial infarction) (2) Chest pain in adult (3) Multiple vessel coronary artery disease (4) Bradycardia Assessment and Plan 1) MVCAD with plan for CABG in the morning by Dr. Ball 2) 2D echo pending 3) Continue heparin drip 4) No BB due to baseline bradycardia Domingo Geronimo DO Oct 09, 2016 10:23
--- NOTE | 2016-10-09 12:06 | MB ---
cc: JOSH MEYERS M.D. DATE OF CONSULTATION: 10/09/2016 At 9:56 a.m. REFERRING PHYSICIAN: Dr. Geronimo. REASON FOR CONSULTATION: Acute myocardial infarction with coronary artery disease. HISTORY OF PRESENT ILLNESS: Mr. Doherty is a very pleasant 51-year gentleman who presented to the [facility] yesterday with progressive onset of substernal chest discomfort described as a pressure sensation. The patient is here visiting for the weekend from [place] at a conference and the symptoms were brought on with exertion involving cycling. Following evaluation in the emergency department and in the hospital, he was noted to have a non-ST elevation myocardial infarction with elevated troponin levels. Based on this he was in the cath lab tech yesterday and underwent the coronary angiogram which revealed multivessel coronary artery disease. I am now being consulted for surgical vascular therapy. At present time he remains pain free, hemodynamically stable with no evidence of ongoing ischemia. PAST MEDICAL HISTORY: Past medical history is unremarkable. He is fairly healthy. PAST SURGICAL HISTORY: Unremarkable. ALLERGIES The patient reports allergies to PENICILLIN MEDICATIONS ON ADMISSION None. SOCIAL HISTORY: Social history is significant for remote history of smoking which he quit 30 years ago. Denies any excessive alcohol use illicit use or drug use. FAMILY HISTORY: Family history is significant for premature coronary disease in his father. As well as high blood pressure in the siblings. REVIEW OF SYSTEMS None. All other parameters are negative. PHYSICAL EXAMINATION: VITAL SIGNS: Physical emanation today he is 175 cm tall, weighs 75 kg, blood pressure is 135/81 with a heart rate of 48, 851, respiratory is 18 and he is afebrile. HEAD, EYES, EARS, NOSE, AND THROAT: Normocephalic, atraumatic. Pupils are reactive. Extraocular muscles intact. NECK: No cervical lymphadenopathy, carotid bruits or JVD. CARDIOVASCULAR SYSTEM: Regular rate and rhythm. Normal S1-S2 without gallops, rubs or murmurs. LUNGS: The lungs are clear to auscultation bilaterally with good exchange. ABDOMEN: The abdomen is soft, nontender, nondistended with normoactive bowel sounds, no hepatosplenomegaly. EXTREMITIES: Bilateral lower extremity pulses are intact without cyanosis, edema and venous varicosities. NEUROLOGICAL: Intact with no focal deficits. IMPRESSION 1. Coronary artery disease. 2. [id number] myocardial infarction. 3. Remote history nicotine use. PLAN The clinical and angiographic findings were discussed in detail with the patient. Therapeutic options available including coronary artery bypass grafting was recommended. I agree with Dr. Geronimo that he will maximally benefit bypasses to the LAD, ramus, OM, as well as the distal right coronary artery distributions. The risks, complications, benefits of surgical proceed with us in detail and all questions answered. He appears to comprehend the given admission and wishes to proceed with the planned operation. We will proceed with surgical procedure as described above. Tomorrow morning on urgent basis. In the meantime we will obtain an echocardiogram to evaluate his LV function as well as pulmonary function tests vein mappings and carotid ultrasound. Thank you for allowing me to participate with this patient. Robert Salmeron /9:59 AM /11:18 AM [facility]IANA
--- NOTE | 2016-10-09 13:39 | RADRPT ---
EXAM DATE/TIME: 10/09/2016 10:39 [facility] COMPARISON: No previous studies available for comparison. INDICATIONS : Preop cardiac surgery. MEDICAL HISTORY : Cardiac disorders. Bradycardia. SURGICAL HISTORY : Cardiac cath. ENCOUNTER: Initial ACUITY: 2 days PAIN SCORE: 0/10 LOCATION: Bilateral neck PEAK SYSTOLIC VELOCITIES (cm/sec): ICA/CCA RATIO: Right: 1.0 Left: 0.8 ICA: Right: 83 Left: 70 CCA: Right: 84 Left: 88 ECA: Right: 89 Left: 112 VERTEBRAL: Right: 34 antegrade Left: 41 antegrade Elevated flow velocities and ICA/CCA ratios have been found to correlate with increased degrees of vessel stenosis, calculated as percentage of diameter relative to a normal segment of distal ICA/CCA FINDINGS: RIGHT CAROTID: No significant stenosis is visualized. The waveforms are within normal limits. LEFT CAROTID: Minimal plaque is seen at the carotid bulb region. No significant stenosis is visualized. The wavefo micki are within normal limits. VERTEBRAL ARTERIES: Antegrade flow is seen in both vertebral arteries. MISCELLANEOUS: None. CONCLUSION: Minimal plaque at the left carotid bulb region. Significant stenosis is not seen. Corey Carrera MD on October 09, 2016 at 13:36 Board Certified Radiologist. This report was verified electronically.
--- NOTE | 2016-10-09 13:39 | RADRPT ---
EXAM DATE/TIME: 10/09/2016 10:53 [facility] COMPARISON: No previous studies available for comparison. INDICATIONS : Preop cardiac surgery. MEDICAL HISTORY : Cardiac disorders. Bradycardia. SURGICAL HISTORY : Cardiac cath. ENCOUNTER: Initial ACUITY: 2 day PAIN SCORE: 0/10 LOCATION: Bilateral leg. TECHNIQUE: Venous ultrasound of the left and right leg was performed from the inguinal ligament to the proximal calf. Real-time, color Doppler and spectral tracing, compression and augmentation techniques were us ed. FINDINGS: RIGHT LEG: There is normal compressibility of the deep venous system from the inguinal region to the proximal ca lf. No echogenic clot is seen in the lumen of the common femoral, femoral, popliteal, and posterior tibial veins. There is a normal response of the venous system to proximal and distal augmentation an d respiration. LEFT LEG: There is normal compressibility of the deep venous system from the inguinal region to the proximal ca lf. No echogenic clot is seen in the lumen of the common femoral, femoral, popliteal, and posterior tibial veins. There is a normal response of the venous system to proximal and distal augmentation an d respiration. CONCLUSION: No DVT. Corey Carrera MD on October 09, 2016 at 13:37 Board Certified Radiologist. This report was verified electronically.
--- NOTE | 2016-10-09 13:40 | RADRPT ---
EXAM DATE/TIME: 10/09/2016 11:01 [facility] COMPARISON: No previous studies available for comparison. INDICATIONS : Preop cardiac surgery. MEDICAL HISTORY : Cardiac disorders. Bradycardia. SURGICAL HISTORY : Cardiac cath. ENCOUNTER: Initial ACUITY: 2 day PAIN SCORE: 0/10 LOCATION: Bilateral leg. GREATER SAPHENOUS VEIN THIGH: PROXIMAL: Right 3 mm Left 4 mm MID: Right 4 mm Left 4 mm DISTAL: Right 3 mm Left 3 mm CALF: PROXIMAL: Right 3 mm Left 2 mm MID: Right 2 mm Left 1 mm DISTAL: Right 2 mm Left 1 mm FINDINGS: The venous system of the lower extremities are patent by color Doppler imaging. Measurements of the leg veins (in mm) are listed above. CONCLUSION: Venous mapping as delineated above. Corey Carrera MD on October 09, 2016 at 13:38 Board Certified Radiologist. This report was verified electronically.
[2016-10-09] MEDS ORDERED: LORazepam 1 MG TAB PO PRN (15:00)
[2016-10-09 15:41] LABS: APTT (PATIENT) 37.8 SEC (24.3-30.1)
--- NOTE | 2016-10-09 15:52 | EC ---
Study Study Date:10/09/2016 STUDY CONCLUSIONS SUMMARY LEFT VENTRICLE: The cavity size was normal. Wall thickness was normal. Systolic function was normal. The estimated ejection fraction was in the range of 50% to 55%. Wall motion was normal; there were no regional wall motion abnormalities. If LV function is below 40, please consider prescribing an ACEI or ARB or document rationale for non-use. PROCEDURE DATA STUDY STATUS: Elective. Procedure: Transthoracic echocardiography. Image quality was good. Scanning was performed from the parasternal, apical, and subcostal acoustic windows. Study completion: The patient tolerated the procedure well. Transthoracic echocardiography. M-mode, complete 2D, complete spectral Doppler, and color Doppler. Patient status: Inpatient. CARDIAC ANATOMY LEFT VENTRICLE: The cavity size was normal. Wall thickness was normal. Systolic function was normal. The estimated ejection fraction was in the range of 50% to 55%. Wall motion was normal; there were no regional wall motion abnormalities. AORTIC VALVE: Trileaflet; normal thickness leaflets. Doppler: Transvalvular velocity was within the normal range. There was no stenosis. No regurgitation. Peak gradient: 16mm Hg (S). AORTA: Aortic root: The aortic root was normal in size. MITRAL VALVE: Structurally normal valve. Doppler: Transvalvular velocity was within the normal range. There was no evidence for stenosis. No regurgitation. Peak gradient: 2mm Hg (D). LEFT ATRIUM: The atrium was normal in size. RIGHT VENTRICLE: The cavity size was normal. Wall thickness was normal. PULMONIC VALVE: Doppler: Transvalvular velocity was within the normal range. There was no evidence for stenosis. No regurgitation. TRICUSPID VALVE: Structurally normal valve. Doppler: Transvalvular velocity was within the normal range. Trace regurgitation. PULMONARY ARTERY: The main pulmonary artery was normal-sized. Systolic pressure was within the normal range. RIGHT ATRIUM: The atrium was normal in size. PERICARDIUM: There was no pericardial effusion. SYSTEMIC VEINS: Inferior vena cava: The vessel was normal in size. BASIC MEASUREMENTS ADULT Normal Left ventricle LV internal dimension, ED, chordal level, *53.8 mm 43-52 PLAX LV internal dimension, ES, chordal level, *42 mm 23-38 PLAX Fractional shortening, chordal level, PLAX *22 % >29 LV posterior wall thickness, ED 8.13 mm IVS/LVPW ratio, ED *1.7 <1.3 Ventricular septum Septal thickness, ED 13.8 mm Aortic valve Leaflet separation 21 mm 15-26 Left atrium Anterior-posterior dimension 37 mm BASIC MEASUREMENTS ADULT Normal Aortic valve Leaflet separation 21 mm 15-26 Aorta Root diameter, ED 29 mm 20-37 DOPPLER MEASUREMENTS ADULT Normal Main pulmonary artery Pressure, S 23 mm Hg =30 Aortic valve Peak velocity, S 202 cm/s Peak gradient, S 16 mm Hg Mitral valve Peak E-wave velocity 72.6 cm/s Peak A-wave velocity 62.7 cm/s Peak gradient, D 2 mm Hg Peak E/A ratio 1.2 Tricuspid valve Regurgitant peak velocity 209 cm/s Peak RV-RA gradient, S 17 mm Hg Maximal regurgitant velocity 209 cm/s Systemic veins Estimated CVP 5 mm Hg Right ventricle RV pressure, S 23 mm Hg <30 LEGEND: Mean values are shown as u=mean value. Asterisk (*) heath values outside specified normal range. Prepared and signed by Alex Williamson [id number]
[2016-10-09 21:37] LABS: APTT (PATIENT) 39.3 SEC (24.3-30.1)
[2016-10-09] MEDS: HEPARIN-D5W INJ 250 ML IV SCH (22:34)
[2016-10-09] MEDS: ATORVASTATIN 80 MG TAB PO SCH (22:35)
[2016-10-10] VITALS (25 sets, daily range): BP systolic 108–142; BP diastolic 60–96; PULSE 39–86; RESP 15–18; TEMP 97.7–100; O2SAT 92–99
[2016-10-10] MEDS: NITROGLYCERIN 2% OINT 1 GM PACKET TOPICAL SCH (03:00)
[2016-10-10 03:51] LABS: APTT (PATIENT) 56.8 SEC (24.3-30.1)
[2016-10-10] MEDS ORDERED: NITROGLYCERIN-DEXTROSE INJ 250 ML IV ONE (05:00)
[2016-10-10] MEDS ORDERED: GLYCOPYRROLATE 0.2 MG/ML VIAL IV ONE (05:00)
[2016-10-10] MEDS ORDERED: MAGNESIUM SULFATE 1000 MG/2 ML VIAL (PED) IV ONE (05:00)
[2016-10-10] MEDS ORDERED: ARTIFICIAL TEARS OPTH OINT 3.5 APPLIC/3.5 GM TUBO ONE (05:00)
[2016-10-10] MEDS ORDERED: NEOSTIGMINE METHYLSULFATE 10 MG/10 ML VIAL IV PUSH ONE (05:00)
[2016-10-10] MEDS ORDERED: HEPARIN SODIUM - SQ 10,000 UNITS/ML VIAL SQ ONE (05:00)
[2016-10-10] MEDS ORDERED: PROTAMINE SULFATE 250 MG/25 ML VIAL IV ONE (05:00)
[2016-10-10] MEDS ORDERED: VANCOMYCIN HCL 1000 MG VIAL ONE (07:28)
[2016-10-10] MEDS ORDERED: HEPARIN SODIUM - SQ 10,000 UNITS/ML VIAL ONE (07:29)
[2016-10-10] MEDS: MUPIROCIN 2% OINT 1 APPLIC/GM SYR EACH NARE SCH ×2 (09:00→21:00)
[2016-10-10] MEDS ORDERED: SODIUM CHLOR 0.9% 250 ML INJ 250 ML IV ONE (11:27)
[2016-10-10] MEDS ORDERED: SODIUM CHLORID 0.9% 500 ML INJ 500 ML IV ONE (11:27)
[2016-10-10] MEDS ORDERED: LACTATED RINGER'S 1000 ML INJ 2,000 ML IV ONE (11:27)
[2016-10-10] MEDS ORDERED: SODIUM CHLORIDE 0.9% INJ 100 ML IV ONE (11:27)
[2016-10-10] MEDS ORDERED: NORMOSOL R INJ 2,000 ML IV ONE (11:28)
[2016-10-10] MEDS: DOBUTamine PREMIX DRIP 250 ML IV SCH (12:32)
[2016-10-10] MEDS ORDERED: LACTATED RINGER'S 1000 ML INJ 500 ML IV PRN (12:32)
--- NOTE | 2016-10-10 12:39 | PD.OP ---
cc: Robert Ball MD; Domingo Geronimo DO Operative Report Date of Surgery: Oct 10, 2016 Preoperative Diagnosis: Postoperative Diagnosis: Procedure: 1. Urgent Off-pump Coronary Artery Bypass Grafting x 4 with left internal mammary artery (ELLIOTT) to left anterior descending (LAD), reverse saphenous vein graft to the ramus marginalis (RM), reverse saphenous vein graft to the OM1, reverse saphenous vein graft to the distal RCA 2. Right Leg Endoscopic Vein [place] 3. Intraoperative Vein Mapping. . Surgeon: Robert Ball Community Relations Advisor(s): Kourtney Spencer Operation and Findings: PREPROCEDURE DIAGNOSES 1. Severe Multi Vessel Coronary Artery Disease. 2. Acute Myocardial Infarction POSTPROCEDURE DIAGNOSES Same SURGICAL PROCEDURE 1. Urgent Off-pump Coronary Artery Bypass Grafting x 4 with left internal mammary artery (ELLIOTT) to left anterior descending (LAD), reverse saphenous vein graft to the ramus marginalis (RM), reverse saphenous vein graft to the OM1, reverse saphenous vein graft to the distal RCA 2. Right Leg Endoscopic Vein [place] 3. Intraoperative Vein Mapping. SURGEON Robert Ball MD STATION INSTALLER AND REPAIRER LEV Simms, [facility] ANESTHESIA General endotracheal TAPPET ADJUSTER IGNACIO Sanches MD PREPARATION ChloraPrep. COUNTS Needle, sponge, and instrument counts were correct. DRAINS Two 32-Italian mediastinal tubes. COMPLICATIONS None. INDICATIONS FOR PROCEDURE The patient is a 51-year-old presenting with chest pain and AMI. Patient was noted to have multi-vessel coronary artery disease. The patient is being brought to the operating room for surgical revascularization therapy. PROCEDURE Patient was brought to the operating room and placed supine on the OR table. Following the induction of adequate general endotracheal anesthesia and placement of appropriate monitoring devices, intraoperative vein mapping was performed which revealed suitable-caliber conduit in bilateral lower extremities. The patient was then prepped and draped in standard sterile fashion. Next, 2500 units of intravenous heparin was given. The right greater saphenous vein was harvested endoscopically. This appeared to be a useable- caliber conduit. Simultaneously, a median sternotomy was performed and the left internal mammary artery dissected free off the posterior sternal table. The patient was systemically heparinized and anticoagulation monitored by serial ACT measurements. The internal mammary artery had excellent pulsatile flow in it and was a good-caliber conduit. The pericardium was then divided in the midline, the cradle created and targets analyzed. At this point, all anastomoses were performed in a beating-heart fashion using the Maquet stabilizing system with intracoronary shunts. The left internal mammary artery was anastomosed to the mid LAD in an end-to-side fashion using 7-0 Prolene. Segment of saphenous vein graft was then anastomosed to the OM1 in an end-to- side fashion using 7-0 Prolene. The next segment was anastomosed to the ramus in an end-to-side fashion using 7-0 Prolene. The final segment of saphenous vein graft was then anastomosed to the distal RCA in an end-to-side fashion using 7-0 Prolene. The proximal anastomoses were then constructed to the ascending aorta in a running manner using 6-0 Prolene. All anastomotic sites were inspected and appeared to be hemostatic and patent. Protamine solution was given. Strict hemostasis was assured. The closure was undertaken. 2 chest tubes were placed. The pericardium was reapproximated in the midline. The sternum was approximated using sternal wires. The muscular and fascial layer were then closed in 3 layers. The endoscopic vein harvest site was closed in 2 layers. The patient tolerated the procedure well and was transferred to CVICU in stable condition. Robert Ball MD Oct 10, 2016 12:39
[2016-10-10] MEDS ORDERED: MORPHINE SULFATE 4 MG/ML INJ IV PRN (12:45)
[2016-10-10] MEDS ORDERED: METOPROLOL TARTRATE 5 MG/5 ML VIAL IV PUSH PRN (12:45)
[2016-10-10] MEDS ORDERED: Post-op Orders (for Pharmacy) MISC OTHER ONE (12:45)
[2016-10-10] MEDS ORDERED: CALCIUM CHLORIDE 10% 1 GRAM/10 ML VIAL IV PRN (12:45)
[2016-10-10] MEDS ORDERED: INSULIN REGULAR (IV INFUSION) 100 UNITS in SODIUM CHLORIDE 0.9% INJ 99 ML IV SCH (12:45)
[2016-10-10] MEDS ORDERED: NITROGLYCERIN-DEXTROSE INJ 250 ML IV SCH (12:45)
[2016-10-10] MEDS ORDERED: ONDANSETRON HCL 4 MG/2 ML VIAL IV PUSH PRN (12:45)
[2016-10-10] MEDS ORDERED: DOPamine INJ PREMIX 500 ML IV SCH (12:45)
[2016-10-10] MEDS ORDERED: DEXTROSE 50% IN WATER 50 ML VIAL(D50) IV PUSH PRN (12:45)
[2016-10-10] MEDS ORDERED: PHENYLEPHRINE INJ 40 MG in DEXTROSE 5% IN WATE 500 ML INJ 496 ML IV SCH ×2 (12:45)
[2016-10-10] MEDS ORDERED: EPINEPHrine (1:1000) INJ 4 MG in DEXTROSE 5% IN WATER INJ 246 ML IV SCH ×2 (12:45)
[2016-10-10] MEDS ORDERED: POTASSIUM CHLOR 20 MEQ PREMIX 100 ML IV PRN ×3 (12:45)
[2016-10-10] MEDS ORDERED: CLEVIDIPINE INJ 50 ML IV SCH (12:45)
[2016-10-10] MEDS ORDERED: hydrALAZINE HCL 20 MG/ML VIAL IV PRN (12:45)
[2016-10-10] MEDS ORDERED: POTASSIUM CHLORIDE 20 MEQ CONTROLLED RELEASE TAB PO PRN ×2 (12:45)
[2016-10-10] MEDS ORDERED: DEXMEDETOMIDINE INJ 200 MCG in SODIUM CHLORIDE 0.9% INJ 50 ML IV SCH (12:45)
[2016-10-10] MEDS ORDERED: ALBUMIN HUMAN 5% 12.5 GM/250 ML BOTTLE IV PRN (12:45)
[2016-10-10] MEDS ORDERED: ACETAMINOPHEN 650 MG SUPP RECTAL PRN (12:45)
[2016-10-10] MEDS ORDERED: ACETAMINOPHEN/HYDROcodone 325 MG/5 MG TAB PO PRN ×2 (12:45)
[2016-10-10] MEDS ORDERED: MAGNESIUM SULFATE INJ 2 GM in SODIUM CHLORIDE 0.9% INJ 100 ML IV PRN ×4 (12:45)
[2016-10-10] MEDS ORDERED: SODIUM CHLORIDE 0.9% FLUSH 10 ML FLUSH IV FLUSH PRN (12:45)
[2016-10-10] MEDS ORDERED: ACETAMINOPHEN 325 MG TAB PO PRN (12:45)
[2016-10-10] MEDS ORDERED: MEPERIDINE HCL 25 MG/ML VIAL IV PRN (12:45)
[2016-10-10] MEDS ORDERED: MIDAZOLAM HCL 5 MG/5 ML VIAL ONE ×2 (13:10)
[2016-10-10] MEDS ORDERED: fentaNYL CITRATE 1000 MCG/20 ML VIAL ONE ×2 (13:11)
[2016-10-10] MEDS: ACETAMINOPHEN 1000 MG/100 ML VIAL IV SCH ×2 (13:14→18:33)
--- NOTE | 2016-10-10 13:35 | EKG ---
Date Performed: 10/08/2016 Time Performed: 14:20:04 PTAGE: 51 years EKG: SINUS BRADYCARDIA NONSPECIFIC T-WAVE ABNORMALITY Compared to prior tracing no significant c hange BORDERLINE ECG PREVIOUS TRACING : 10/08/2016 10.50 DOCTOR: Neno Andino Interpretating Date/Time 10/10/2016 13:32:26
--- NOTE | 2016-10-10 13:35 | EKG ---
Date Performed: 10/08/2016 Time Performed: 17:14:00 PTAGE: 51 years EKG: SINUS BRADYCARDIA NONSPECIFIC T-WAVE ABNORMALITY Compared to prior tracing no significant c hange BORDERLINE ECG PREVIOUS TRACING : 10/08/2016 14.20 DOCTOR: Neno Andino Interpretating Date/Time 10/10/2016 13:32:18
[2016-10-10] MEDS: CALCIUM CHLORIDE INJ 1 GM in SODIUM CHLORIDE 0.9% INJ 100 ML IV PRN ×2 (13:38→17:00)
--- NOTE | 2016-10-10 14:02 | RADRPT ---
EXAM DATE/TIME: 10/10/2016 13:04 [facility] COMPARISON: CHEST SINGLE AP, October 08, 2016, 10:55. INDICATIONS : Status post CABG. MEDICAL HISTORY : None. SURGICAL HISTORY : CABG. ENCOUNTER: Initial ACUITY: 1 day PAIN SCORE: Non-responsive. LOCATION: Bilateral chest FINDINGS: Patient is status post sternotomy. The ET tube, NG tube, right internal jugular central line, and le ft chest tube and mediastinal drains all appear well-placed. The heart size is upper limits of rene l for size. There is increased density at the left mid and lower lung. The right lung is relatively clear. CONCLUSION: 1. Tubes and lines in good position. 2. Suspected atelectasis or consolidation at the left mid and lower lung. Corey Carrera MD on October 10, 2016 at 13:56 Board Certified Radiologist. This report was verified electronically.
[2016-10-10] MEDS: KETOROLAC TROMETHAMINE 30 MG/ML (IVP) VIAL IV PUSH PRN ×2 (15:01→22:15)
--- NOTE | 2016-10-10 16:17 | PD.CARD.PN ---
Subjective Subjective Remarks Post-CABG, doing well Awake on the vent, no pressors Objective Medications Current Medications Medications (Trade) Dose Ordered Sig/Octavia Route Start Time Stop Time Status Last Admin (Nitrostat Sl) 0.4 mg Q5M PRN SL 10/08/16 12:30 (Heparin Inj) 5,000 units UNSCH PRN IV 10/08/16 23:30 Heparin Sodium (Porcine) 2500 units 2,500 units UNSCH PRN IV 10/08/16 23:30 10/09/16 22:35 (Heparin-D5W Inj) 250 ml @ 0 mls/hr TITRATE IV 10/08/16 17:30 10/09/16 22:34 (Lipitor) 80 mg HS PO 10/08/16 21:00 10/09/16 22:35 (Bactroban Nasal 2% Oint) 1 applic BID EACH NARE 10/09/16 09:00 10/14/16 08:59 10/09/16 22:35 (NS Flush) 2 ml BID IV FLUSH 10/10/16 21:00 Sodium Chloride 2 ml 2 ml UNSCH PRN IV FLUSH 10/10/16 12:45 Dexmedetomidine HCl 200 mcg/ Sodium Chloride 52 ml @ 3.91 mls/hr TITRATE IV 10/10/16 12:45 Nitroglycerin/ Dextrose 250 ml @ 1.5 mls/hr TITRATE IV 10/10/16 12:45 Dobutamine HCl/ Dextrose 250 ml @ 11.28 mls/ hr [id number] IV 10/10/16 12:32 Dopamine HCl/ Dextrose 500 ml @ 8.46 mls/hr TITRATE IV 10/10/16 12:45 Epinephrine HCl 4 mg/Dextrose 250 ml @ 11.25 mls/ hr TITRATE IV 10/10/16 12:45 Phenylephrine HCl 40 mg/Dextrose 500 ml @ 30 mls/hr TITRATE IV 10/10/16 12:45 (Cleviprex Inj) 50 ml @ 2 mls/hr TITRATE IV 10/10/16 12:45 Albumin Human 12.5 gm 12.5 gm UNSCH PRN IV 10/10/16 12:45 Lactated Ringer's 500 ml @ 500 mls/hr Q1H PRN IV 10/10/16 12:32 (Vancomycin Inj/ NS 250 ml Inj) 250 ml @ 250 mls/hr Q12H IV 10/10/16 21:00 10/11/16 21:59 (Aspirin Chew) 81 mg DAILY PO 10/11/16 09:00 (Plavix) 75 mg DAILY PO 10/11/16 09:00 (Protonix) 40 mg DAILY@06 PO 10/11/16 06:00 (Cordarone) 400 mg Q12HR PO 10/11/16 09:00 (Tylenol) 650 mg Q4H PRN PO 10/10/16 12:45 (Tylenol Supp) 650 mg Q4H PRN RECTAL 10/10/16 12:45 (Ofirmev Inj) 1,000 mg Q6H IV 10/10/16 13:00 10/11/16 07:01 10/10/16 13:14 (Morphine Inj) 1 mg Q10M PRN IV 10/10/16 12:45 (Demerol Inj) 12.5 mg Q4H PRN IV 10/10/16 12:45 (Perry 5-325 Mg) 1 tab Q3H PRN PO 10/10/16 12:45 (Perry 5-325 Mg) 2 tab Q3H PRN PO 10/10/16 12:45 (Toradol Inj) 15 mg Q6H PRN IV PUSH 10/10/16 14:00 10/12/16 13:59 10/10/16 15:01 (fentaNYL INJ) 25 mcg Q1H PRN IV 10/10/16 12:45 (Zofran Inj) 4 mg Q6H PRN IV PUSH 10/10/16 12:45 (Apresoline Inj) 10 mg Q4H PRN IV 10/10/16 12:45 Metoprolol Tartrate 2.5 mg 2.5 mg Q1H PRN IV PUSH 10/10/16 12:45 Potassium Chloride 100 ml @ 50 mls/hr UNSCH PRN IV 10/10/16 12:45 Potassium Chloride 100 ml @ 50 mls/hr UNSCH PRN IV 10/10/16 12:45 Potassium Chloride 100 ml @ 50 mls/hr UNSCH PRN IV 10/10/16 12:45 Magnesium Sulfate 2 gm/Sodium Chloride 104 ml @ 100 mls/hr UNSCH PRN IV 10/10/16 12:45 Magnesium Sulfate 2 gm/Sodium Chloride 104 ml @ 50 mls/hr UNSCH PRN IV 10/10/16 12:45 (Calcium Chloride Inj/NS Inj) 110 ml @ 100 mls/hr UNSCH PRN IV 10/10/16 12:45 10/10/16 13:38 Calcium Chloride 0.5 gm 0.5 gm UNSCH PRN IV 10/10/16 12:45 (NovoLIN R (IV INFUSION)/NS Inj) 100 ml @ 0 mls/hr TITRATE IV 10/10/16 12:45 (D50w (Vial) Inj) 25 ml UNSCH PRN IV PUSH 10/10/16 12:45 Vital Signs / I&O Vital Signs Date Time Temp Pulse Resp B/P Pulse Ox O2 Delivery O2 Flow Rate FiO2 10/10/16 15:29 94 50 10/10/16 15:27 96 Mechanical Ventilator 50 10/10/16 15:18 60 10/10/16 15:00 98.6 60 17 134/86 93 10/10/16 14:40 70 10/10/16 13:57 61 10/10/16 13:44 17 10/10/16 13:39 92 80 10/10/16 13:15 80 10/10/16 12:58 97.7 77 15 123/85 99 115/60 10/10/16 12:55 95 60 10/10/16 07:10 96 21 10/10/16 06:00 52 119/72 10/10/16 06:00 52 10/10/16 05:00 50 10/10/16 04:00 48 18 108/77 10/10/16 04:00 48 10/10/16 03:00 46 10/10/16 02:00 39 10/10/16 01:00 47 10/10/16 00:00 48 10/09/16 23:16 50 10/09/16 23:00 98.0 48 17 131/92 93 10/09/16 22:00 58 10/09/16 21:00 56 10/09/16 20:00 58 10/09/16 19:15 67 10/09/16 19:00 67 10/09/16 19:00 98.2 55 16 144/98 96 10/09/16 19:00 67 10/09/16 18:02 66 10/09/16 17:00 52 I/O 410/09/16 10/09/16 10/10/16 10/10/16 10/10/16 07:00 15:00 23:00 07:00 15:00 23:00 Intake Total 1030 ml 757 ml 116 ml Output Total 980 ml 1250 ml 730 ml Balance 50 ml -493 ml -614 ml Intake Oral 480 ml 600 ml 0 ml IV Total 550 ml 157 ml 116 ml Output Urine Total 980 ml 1250 ml 730 ml # Bowel Movements 0 Physical Exam GENERAL: NAD SKIN: Warm and dry. HEAD: Atraumatic. Normocephalic. EYES: Pupils equal and round. No scleral icterus. No injection or drainage. ENT: No nasal bleeding or discharge. Mucous membranes pink and moist. NECK: Trachea midline. No JVD. CARDIOVASCULAR: Regular rate and rhythm. RESPIRATORY: No accessory muscle use. Decreased breath sounds bilaterally GASTROINTESTINAL: Abdomen soft, non-tender, nondistended. Hepatic and splenic margins not palpable. MUSCULOSKELETAL: Extremities without clubbing, cyanosis, or edema. No obvious deformities. Right radial no hematoma neurovascularly intact distally NEUROLOGICAL: Awake and alert. No obvious cranial nerve deficits. PSYCHIATRIC: Appropriate mood and affect; insight and judgment normal. Laboratory Laboratory Tests Test 10/09/16 10/10/16 21:15 03:30 Activated Partial 39.3 SEC 56.8 SEC Thromboplast Time Assessment and Plan Problem List: (1) NSTEMI (non-ST elevated myocardial infarction) (2) Chest pain in adult (3) Multiple vessel coronary artery disease (4) Bradycardia (5) S/P CABG x 4 Assessment and Plan 1) MVCAD s/p CABG POD#0 ELLIOTT to LAD SVG to Ramus SVG to OM SVG to RCA 2) Pre-operative echo with EF 50-55% 3) Plan extubation if criteria met 4) ASA/Plavix/Lipitor 5) Will hold on BB as baseline heart rate 50-60s Domingo Geronimo DO Oct 10, 2016 16:17
--- NOTE | 2016-10-10 16:17 | HHI.PR ---
Subjective Remarks Patient in CVICU, post CABG, open eyes doing well Then to weaning process ongoing Discussed with the nurse Objective Vitals Vital Signs Date Time Temp Pulse Resp B/P Pulse Ox O2 Delivery O2 Flow Rate FiO2 10/10/16 15:29 94 50 10/10/16 15:27 96 Mechanical Ventilator 50 10/10/16 15:18 60 10/10/16 15:00 98.6 60 17 134/86 93 10/10/16 14:40 70 10/10/16 13:57 61 10/10/16 13:44 17 10/10/16 13:39 92 80 10/10/16 13:15 80 10/10/16 12:58 97.7 77 15 123/85 99 115/60 10/10/16 12:55 95 60 10/10/16 07:10 96 21 10/10/16 06:00 52 119/72 10/10/16 06:00 52 10/10/16 05:00 50 10/10/16 04:00 48 18 108/77 10/10/16 04:00 48 10/10/16 03:00 46 10/10/16 02:00 39 10/10/16 01:00 47 10/10/16 00:00 48 10/09/16 23:16 50 10/09/16 23:00 98.0 48 17 131/92 93 10/09/16 22:00 58 10/09/16 21:00 56 10/09/16 20:00 58 10/09/16 19:15 67 10/09/16 19:00 67 10/09/16 19:00 98.2 55 16 144/98 96 10/09/16 19:00 67 10/09/16 18:02 66 10/09/16 17:00 52 I/O 10/09/16 10/09/16 10/09/16 10/10/16 10/10/16 10/10/16 07:00 15:00 23:00 07:00 15:00 23:00 Intake Total 1030 ml 757 ml 116 ml Output Total 980 ml 1250 ml 730 ml Balance 50 ml -493 ml -614 ml Intake Oral 480 ml 600 ml 0 ml IV Total 550 ml 157 ml 116 ml Output Urine Total 980 ml 1250 ml 730 ml # Bowel Movements 0 Result Diagram: 10/09/16 0726 10/09/16 0726 Objective Remarks - GENERAL: This is a well-nourished, well-developed patient, doing well post CABG SKIN: No rashes, warm and dry HEAD: Atraumatic. Normocephalic. EYES: Pupils equal round and reactive. Extraocular motions intact. No scleral icterus. ENT: Nose without bleeding, or drainage, Airway patent. NECK: Trachea midline. Supple CARDIOVASCULAR: Regular rate and rhythm without murmurs, gallops, or rubs. RESPIRATORY: Fair air entry bilaterally. Chest tube in place GASTROINTESTINAL: Abdomen soft, non-tender, nondistended. Positive bowel sounds MUSCULOSKELETAL: Extremities without clubbing, cyanosis, or edema. Pedal pulses appreciated NEUROLOGICAL: Awake and alert. Moves all extremity. A/P Assessment and Plan 10/10: Stable. POD #0, being weaned off the vent, looks comfortable awake, CVS in cardiology following A/P: Chest pain Non-STEMI status post heart catheter >> multiple vessels CAD with proximal LAD> > status post CABG 09/09 Bradycardia most likely due to athletic heart History of premature CAD Remotely tobacco abuse DVT prophylaxis patient on heparin drip Plan: Continue current care post CABG, surgery CVICU team following Patient is status post left heart catheter and CABG on 09/09, monitor hemodynamic status, BMP CBC Avoid beta marti at this time due to bradycardia Aspirin, nitroglycerin, high intensity statin with Lipitor 80 mg started Further plan per taste tester Dez Gallo MD Oct 10, 2016 16:17
[2016-10-10] MEDS ORDERED: RESP: RACEPINEPHRINE 2.25% 0.5 ML NEB NEB PRN (19:45)
[2016-10-10] MEDS ORDERED: RESP: ALBUTEROL 2.5 MG/IPRATROPIUM 0.5 MG NEB (PRN) NEB (19:45)
[2016-10-10] MEDS: VANCOMYCIN INJ 1,000 MG in SODIUM CHLOR 0.9% 250 ML INJ 250 ML IV SCH (21:09)
[2016-10-10] MEDS: SODIUM CHLORIDE 0.9% FLUSH 10 ML FLUSH IV FLUSH SCH (21:10)
[2016-10-10] MEDS: ATORVASTATIN 80 MG TAB PO SCH (21:10)
[2016-10-10] MEDS: RESP: ALBUTEROL 2.5 MG/IPRATROPIUM 0.5 MG NEB (SCH) NEB (22:44)
[2016-10-11] VITALS (16 sets, daily range): BP systolic 129–154; BP diastolic 72–111; PULSE 61–90; RESP 16–18; TEMP 97.6–98.8; O2SAT 90–97
[2016-10-11] MEDS: ACETAMINOPHEN 1000 MG/100 ML VIAL IV SCH ×2 (00:12→06:06)
[2016-10-11] MEDS: RESP: ALBUTEROL 2.5 MG/IPRATROPIUM 0.5 MG NEB (SCH) NEB ×2 (03:35→14:33)
[2016-10-11 05:39] LABS: HEMATOCRIT 36.4 % (39.0-51.0); MEAN CELL VOLUME 89.5 FL (80.0-100.0); MEAN CORPUSCULAR HEMOGLOBIN 31.2 PG (27.0-34.0); MEAN CORPUSCULAR HGB CONC 34.8 % (32.0-36.0); PLATELET COUNT 148 TH/MM3 (150-450); RED BLOOD COUNT 4.06 MIL/MM3 (4.50-5.90); RED CELL DISTRIBUTION WIDTH 12.4 % (11.6-17.2); REVIEW FLAG FINAL; WHITE BLOOD COUNT 10.9 TH/MM3 (4.0-11.0)
[2016-10-11] MEDS: KETOROLAC TROMETHAMINE 30 MG/ML (IVP) VIAL IV PUSH PRN ×3 (05:45→21:05)
[2016-10-11] MEDS: PANTOPRAZOLE SOD 40 MG DELAYED RELEASE TAB PO SCH (05:45)
[2016-10-11 05:58] LABS: BICARBONATE 25.9 MEQ/L (21.0-32.0); MAGNESIUM 1.8 MG/DL (1.5-2.5); POTASSIUM 4.1 MEQ/L (3.5-5.1)
--- NOTE | 2016-10-11 06:05 | RADRPT ---
EXAM DATE/TIME: 10/11/2016 05:05 [facility] COMPARISON: CHEST SINGLE AP, October 10, 2016, 13:04. INDICATIONS : Follow up CABG. MEDICAL HISTORY : None. SURGICAL HISTORY : CABG. ENCOUNTER: Subsequent ACUITY: 3 days PAIN SCORE: 5/10 LOCATION: Bilateral chest FINDINGS: The left-sided chest tubes remain in place. The endotracheal tube and NG tube have been removed. Ther e is no evidence of pneumothorax. The lungs are grossly clear. The heart size is stable. The bony str uctures are stable. CONCLUSION: No acute pulmonary infiltrates. No evidence of pneumothorax. Kike Barriga MD on October 11, 2016 at 6:03 Board Certified Radiologist. This report was verified electronically.
[2016-10-11] MEDS: HEPARIN-D5W INJ 250 ML IV SCH (07:13)
[2016-10-11] MEDS: SODIUM CHLORIDE 0.9% FLUSH 10 ML FLUSH IV FLUSH SCH ×2 (08:13→21:05)
[2016-10-11] MEDS: MUPIROCIN 2% OINT 1 APPLIC/GM SYR EACH NARE SCH ×2 (08:13→20:48)
[2016-10-11] MEDS: ASPIRIN 81 MG CHEW TAB PO SCH (08:15)
[2016-10-11] MEDS: VANCOMYCIN INJ 1,000 MG in SODIUM CHLOR 0.9% 250 ML INJ 250 ML IV SCH ×2 (08:15→20:50)
[2016-10-11] MEDS: CLOPIDOGREL 75 MG TAB PO SCH (08:15)
[2016-10-11] MEDS: DOBUTamine PREMIX DRIP 250 ML IV SCH (08:16)
[2016-10-11] MEDS ORDERED: AMIODARONE 200 MG TAB PO SCH (09:00)
[2016-10-11] MEDS ORDERED: DEXTROSE 50% IN WATER 50 ML VIAL(D50) IV PRN (09:15)
[2016-10-11] MEDS ORDERED: SOD PHOSPHATE/SOD BIPHOSPHATE (ADULT) ENEMA 133ML RECTAL PRN (09:15)
[2016-10-11] MEDS ORDERED: GLUCAGON 1 MG/ML VIAL OTHER PRN (09:15)
[2016-10-11] MEDS ORDERED: BISACODYL 10 MG SUPP RECTAL PRN (09:15)
[2016-10-11] MEDS: INSULIN ASPART SUPPLEMENTAL SCALE SQ SCH ×4 (10:47→22:00)
[2016-10-11] MEDS: amLODIPine BESYLATE 5 MG TAB PO SCH (10:47)
[2016-10-11] MEDS: DOCUSATE SODIUM 100 MG CAP PO SCH ×2 (10:47→20:51)
[2016-10-11] MEDS ORDERED: POTASSIUM CHLORIDE 20 MEQ CONTROLLED RELEASE TAB PO ONE (11:00)
[2016-10-11] MEDS ORDERED: FUROSEMIDE 40 MG/4 ML VIAL IV PUSH ONE (11:00)
--- NOTE | 2016-10-11 11:22 | HHI.PR ---
Subjective Remarks Follow up on multivessel CAD status post CABG patient doing very well today he is off all drips Slight chest pain but tolerable, no fever or chills no short of breath Objective Vitals Vital Signs Date Time Temp Pulse Resp B/P Pulse Ox O2 Delivery O2 Flow Rate FiO2 10/11/16 11:18 98 Nasal Cannula 2.00 10/11/16 11:18 78 10/11/16 11:18 98.6 61 16 154/111 95 10/11/16 08:05 97 Nasal Cannula 2.00 10/11/16 07:15 61 10/11/16 07:00 98 Nasal Cannula 2.00 10/11/16 07:00 98.7 61 16 136/99 95 10/11/16 07:00 61 10/11/16 03:00 97 Nasal Cannula 2.00 10/11/16 03:00 98.6 65 16 129/85 95 Arterial Line 10/11/16 03:00 61 10/10/16 23:01 97 Nasal Cannula 2.00 10/10/16 23:00 70 10/10/16 23:00 95 Nasal Cannula 2.00 10/10/16 23:00 100.0 73 16 142/94 95 10/10/16 22:00 95 Nasal Cannula 3.00 10/10/16 21:14 97 Nasal Cannula 3.50 10/10/16 19:20 86 10/10/16 19:20 97 Nasal Cannula 4.00 10/10/16 19:20 86 10/10/16 19:15 99.7 71 16 136/94 96 112/96 10/10/16 18:04 70 10/10/16 18:02 69 10/10/16 17:38 17 10/10/16 17:30 97 Nasal Cannula 4.00 10/10/16 17:11 62 10/10/16 17:10 97 Nasal Cannula 5.00 10/10/16 16:57 69 10/10/16 16:57 69 10/10/16 16:23 94 Nasal Cannula 5 10/10/16 16:23 94 Nasal Cannula 5.00 10/10/16 16:01 17 10/10/16 15:29 94 50 10/10/16 15:27 96 Mechanical Ventilator 50 10/10/16 15:18 60 10/10/16 15:00 98.6 60 17 134/86 93 10/10/16 14:40 70 10/10/16 13:57 61 10/10/16 13:44 17 10/10/16 13:39 92 80 10/10/16 13:15 80 10/10/16 12:58 97.7 77 15 123/85 99 115/60 10/10/16 12:55 95 60 I/O 10/10/16 10/10/16 10/10/16 10/11/16 10/11/16 10/11/16 07:00 15:00 23:00 07:00 15:00 23:00 Intake Total 116 ml 1600 ml 2060 ml Output Total 730 ml 550 ml 1175 ml Balance -614 ml 1050 ml 885 ml Intake Oral 0 ml 960 ml IV Total 116 ml 1600 ml 850 ml Albumin 250 ml Output Urine Total 730 ml 350 ml 795 ml Chest Tube Drainage Total 200 ml 380 ml # Bowel Movements 0 0 Result Diagram: 10/11/16 0500 10/11/16 0500 Objective Remarks - GENERAL: This is a well-nourished, well-developed patient, doing well post CABG SKIN: No rashes, warm and dry HEAD: Atraumatic. Normocephalic. EYES: Pupils equal round and reactive. Extraocular motions intact. No scleral icterus. ENT: Nose without bleeding, or drainage, Airway patent. NECK: Trachea midline. Supple CARDIOVASCULAR: Regular rate and rhythm without murmurs, gallops, or rubs. RESPIRATORY: Fair air entry bilaterally. Chest tube in place GASTROINTESTINAL: Abdomen soft, non-tender, nondistended. Positive bowel sounds MUSCULOSKELETAL: Extremities without clubbing, cyanosis, or edema. Pedal pulses appreciated NEUROLOGICAL: Awake and alert. Moves all extremity. A/P Assessment and Plan 10/10: Patient POD #0 doing well off drips, transferred to [facility] 10/11: Patient daily #1 doing well, resting in bed, CVS in cardiology following, continue diuresis and follow BMP A/P: Chest pain multivessel CAD Non-STEMI status post heart catheter >> multiple vessels CAD with proximal LAD> > status post CABG 09/09 Bradycardia most likely due to athletic heart History of premature CAD Remotely tobacco abuse DVT prophylaxis patient on heparin drip Plan: Continue current care post CABG, surgery CVICU team following Patient is status post left heart catheter and CABG on 09/09, monitor hemodynamic status, BMP CBC Avoid beta marti at this time due to bradycardia Aspirin, nitroglycerin, high intensity statin with Lipitor 80 mg started Further plan per solar electric/photovoltaic installer Dez Gallo MD Oct 11, 2016 11:22
--- NOTE | 2016-10-11 11:45 | PD.CARD.PN ---
Subjective Subjective Remarks Minimal appropriate chest pain, no shortness of breath No events over night Objective Medications Current Medications Medications (Trade) Dose Ordered Sig/Octavia Route Start Time Stop Time Status Last Admin (Lipitor) 80 mg HS PO 10/08/16 21:00 10/10/16 21:10 (Bactroban Nasal 2% Oint) 1 applic BID EACH NARE 10/09/16 09:00 10/14/16 08:59 10/11/16 08:13 (NS Flush) 2 ml BID IV FLUSH 10/10/16 21:00 10/11/16 08:13 Sodium Chloride 2 ml 2 ml UNSCH PRN IV FLUSH 10/10/16 12:45 (Vancomycin Inj/ NS 250 ml Inj) 250 ml @ 250 mls/hr Q12H IV 10/10/16 21:00 10/11/16 21:59 10/11/16 08:15 (Aspirin Chew) 81 mg DAILY PO 10/11/16 09:00 10/11/16 08:15 (Plavix) 75 mg DAILY PO 10/11/16 09:00 10/11/16 08:15 (Protonix) 40 mg DAILY@06 PO 10/11/16 06:00 10/11/16 05:45 (Tylenol) 650 mg Q4H PRN PO 10/10/16 12:45 (Toradol Inj) 15 mg Q6H PRN IV PUSH 10/10/16 14:00 10/12/16 13:59 10/11/16 05:45 (Zofran Inj) 4 mg Q6H PRN IV PUSH 10/10/16 12:45 (Apresoline Inj) 10 mg Q4H PRN IV 10/10/16 12:45 (Percocet 5-325 Mg) 1 tab Q4H PRN PO 10/11/16 09:00 (Percocet 5-325 Mg) 2 tab Q4H PRN PO 10/11/16 09:00 (Cordarone) 200 mg Q12HR PO 10/11/16 21:00 (Norvasc) 5 mg DAILY PO 10/11/16 11:00 10/11/16 10:47 (Colace) 100 mg BID PO 10/11/16 11:00 10/11/16 10:47 (Theragran M Tab) 1 tab DAILY PO 10/12/16 09:00 (Milk Of Magnesia Liq) 30 ml DAILY PO 10/12/16 09:00 (Miralax) 17 gm DAILY PO 10/12/16 09:00 (Senokot) 8.6 mg HS PO 10/11/16 21:00 (Fleets Enema (Adult)) 133 ml UNSCH PRN RECTAL 10/11/16 09:15 (NovoLOG SUPPLEMENTAL SCALE) 1 02,06,10,14,18,22 SQ 10/11/16 10:00 10/11/16 10:47 (D50w (Vial) Inj) 25 ml UNSCH PRN IV 10/11/16 09:15 (Glucagon Inj) 1 mg UNSCH PRN OTHER 10/11/16 09:15 Vital Signs / I&O Vital Signs Date Time Temp Pulse Resp B/P Pulse Ox O2 Delivery O2 Flow Rate FiO2 10/11/16 11:18 98 Nasal Cannula 2.00 10/11/16 11:18 78 10/11/16 11:18 98.6 61 16 154/111 95 10/11/16 08:05 97 Nasal Cannula 2.00 10/11/16 07:15 61 10/11/16 07:00 98 Nasal Cannula 2.00 10/11/16 07:00 98.7 61 16 136/99 95 10/11/16 07:00 61 10/11/16 03:00 97 Nasal Cannula 2.00 10/11/16 03:00 98.6 65 16 129/85 95 Arterial Line 10/11/16 03:00 61 10/10/16 23:01 97 Nasal Cannula 2.00 10/10/16 23:00 70 10/10/16 23:00 95 Nasal Cannula 2.00 10/10/16 23:00 100.0 73 16 142/94 95 10/10/16 22:00 95 Nasal Cannula 3.00 10/10/16 21:14 97 Nasal Cannula 3.50 10/10/16 19:20 86 10/10/16 19:20 97 Nasal Cannula 4.00 10/10/16 19:20 86 10/10/16 19:15 99.7 71 16 136/94 96 112/96 10/10/16 18:04 70 10/10/16 18:02 69 10/10/16 17:38 17 10/10/16 17:30 97 Nasal Cannula 4.00 10/10/16 17:11 62 10/10/16 17:10 97 Nasal Cannula 5.00 10/10/16 16:57 69 10/10/16 16:57 69 10/10/16 16:23 94 Nasal Cannula 5 10/10/16 16:23 94 Nasal Cannula 5.00 10/10/16 16:01 17 10/10/16 15:29 94 50 10/10/16 15:27 96 Mechanical Ventilator 50 10/10/16 15:18 60 10/10/16 15:00 98.6 60 17 134/86 93 10/10/16 14:40 70 10/10/16 13:57 61 10/10/16 13:44 17 10/10/16 13:39 92 80 10/10/16 13:15 80 10/10/16 12:58 97.7 77 15 123/85 99 115/60 10/10/16 12:55 95 60 I/O 10/10/16 10/10/16 10/10/16 10/11/16 10/11/16 10/11/16 07:00 15:00 23:00 07:00 15:00 23:00 Intake Total 116 ml 1600 ml 2060 ml 1090 ml Output Total 730 ml 550 ml 1175 ml 280 ml Balance -614 ml 1050 ml 885 ml 810 ml Intake Oral 0 ml 960 ml 630 ml IV Total 116 ml 1600 ml 850 ml 460 ml Albumin 250 ml Output Urine Total 730 ml 350 ml 795 ml 180 ml Chest Tube Drainage Total 200 ml 380 ml 100 ml # Bowel Movements 0 0 0 Physical Exam GENERAL: NAD SKIN: Warm and dry. HEAD: Atraumatic. Normocephalic. EYES: Pupils equal and round. No scleral icterus. No injection or drainage. ENT: No nasal bleeding or discharge. Mucous membranes pink and moist. NECK: Trachea midline. No JVD. CARDIOVASCULAR: Regular rate and rhythm. Incision clean/dry/intact RESPIRATORY: No accessory muscle use. Decreased breath sounds bilaterally GASTROINTESTINAL: Abdomen soft, non-tender, nondistended. Hepatic and splenic margins not palpable. MUSCULOSKELETAL: Extremities without clubbing, cyanosis, or edema. No obvious deformities. Right radial no hematoma neurovascularly intact distally NEUROLOGICAL: Awake and alert. No obvious cranial nerve deficits. PSYCHIATRIC: Appropriate mood and affect; insight and judgment normal. Laboratory Laboratory Tests Test 10/11/16 05:00 White Blood Count 10.9 TH/MM3 Red Blood Count 4.06 MIL/MM3 Hemoglobin 12.7 GM/DL Hematocrit 36.4 % Mean Corpuscular Volume 89.5 FL Mean Corpuscular Hemoglobin 31.2 PG Mean Corpuscular Hemoglobin 34.8 % Concent Red Cell Distribution Width 12.4 % Platelet Count 148 TH/MM3 Mean Platelet Volume 8.3 FL Sodium Level 137 MEQ/L Potassium Level 4.1 MEQ/L Chloride Level 104 MEQ/L Carbon Dioxide Level 25.9 MEQ/L Anion Gap 7 MEQ/L Blood Urea Nitrogen 11 MG/DL Creatinine 0.85 MG/DL Estimat Glomerular Filtration 95 ML/MIN Rate Random Glucose 96 MG/DL Calcium Level 7.8 MG/DL Magnesium Level 1.8 MG/DL Assessment and Plan Problem List: (1) NSTEMI (non-ST elevated myocardial infarction) (2) Chest pain in adult (3) Multiple vessel coronary artery disease (4) Bradycardia (5) S/P CABG x 4 Assessment and Plan 1) MVCAD s/p CABG POD#1 ELLIOTT to LAD SVG to Ramus SVG to OM SVG to RCA 2) Pre-operative echo with EF 50-55% 3) ASA/Plavix/Lipitor 4) Will hold on BB as baseline heart rate 50-60s 5) Plan chest tubes out tomorrow per CT surgery Domingo Geronimo DO Oct 11, 2016 11:45
[2016-10-11] MEDS: oxyCODONE/ACETAMINOPHEN 5 MG/325 MG TAB PO PRN ×3 (11:53→21:04)
--- NOTE | 2016-10-11 14:28 | EKG ---
Date Performed: 10/11/2016 Time Performed: 05:20:24 PTAGE: 51 years EKG: Sinus rhythm Extensive T wave changes are nonspecific Compared to prior tracing no significant change Borderline ECG PREVIOUS TRACING : 10/08/2016 17.14 DOCTOR: Hector Marquez Interpretating Date/Time 10/11/2016 14:24:19
--- NOTE | 2016-10-11 16:38 | PD.CAR.PN ---
CVT Progress Note CVT: POD #: 1 Subjective/Hospital Course: 51/ male developed chest pain while riding his bike, visiting the area 2/2 job, from [place] , ruled in for NSTEMI underwent cardiac cath by Dr Geronimo multivessel CAD/ baseline bradycardia EF 50% surgery : 10/10 1. Urgent Off-pump Coronary Artery Bypass Grafting x 4 with left internal mammary artery (ELLIOTT) to left anterior descending (LAD), reverse saphenous vein graft to the ramus marginalis (RM), reverse saphenous vein graft to the OM1, reverse saphenous vein graft to the distal RCA 2. Right Leg Endoscopic Vein [place] 3. Intraoperative Vein Mapping. Objective: GENERAL: SKIN: Warm and dry.prevena to chest codey wrap to right leg HEAD: Normocephalic. EYES: No scleral icterus. No injection or drainage. NECK: Supple, trachea midline. No JVD or lymphadenopathy. CARDIOVASCULAR: Regular rate and rhythm without murmurs, gallops, or rubs. RESPIRATORY: Breath sounds equal bilaterally. No accessory muscle use. chest tube to wall suction/ no air leak / drained 380cc/ 12 hrs GASTROINTESTINAL: Abdomen soft, non-tender, nondistended. MUSCULOSKELETAL: No cyanosis, or edema. BACK: Nontender without obvious deformity. No CVA tenderness. Vital Signs Date Time Temp Pulse Resp B/P Pulse Ox O2 Delivery O2 Flow Rate FiO2 10/11/16 16:00 75 10/11/16 15:00 90 10/11/16 14:00 74 10/11/16 13:00 87 10/11/16 11:18 98 Nasal Cannula 2.00 10/11/16 11:18 78 10/11/16 11:18 98.6 61 16 154/111 95 10/11/16 08:05 97 Nasal Cannula 2.00 10/11/16 07:15 61 10/11/16 07:00 98 Nasal Cannula 2.00 10/11/16 07:00 98.7 61 16 136/99 95 10/11/16 07:00 61 10/11/16 03:00 97 Nasal Cannula 2.00 10/11/16 03:00 98.6 65 16 129/85 95 Arterial Line 10/11/16 03:00 61 10/10/16 23:01 97 Nasal Cannula 2.00 10/10/16 23:00 70 10/10/16 23:00 95 Nasal Cannula 2.00 10/10/16 23:00 100.0 73 16 142/94 95 10/10/16 22:00 95 Nasal Cannula 3.00 10/10/16 21:14 97 Nasal Cannula 3.50 10/10/16 19:20 86 10/10/16 19:20 97 Nasal Cannula 4.00 10/10/16 19:20 86 10/10/16 19:15 99.7 71 16 136/94 96 112/96 10/10/16 18:04 70 10/10/16 18:02 69 10/10/16 17:38 17 10/10/16 17:30 97 Nasal Cannula 4.00 10/10/16 17:11 62 10/10/16 17:10 97 Nasal Cannula 5.00 10/10/16 16:57 69 10/10/16 16:57 69 Labs: Laboratory Tests Test 10/11/16 05:00 White Blood Count 10.9 TH/MM3 (4.0-11.0) Red Blood Count 4.06 MIL/MM3 (4.50-5.90) Hemoglobin 12.7 GM/DL (13.0-17.0) Hematocrit 36.4 % (39.0-51.0) Mean Corpuscular Volume 89.5 FL (80.0-100.0) Mean Corpuscular Hemoglobin 31.2 PG (27.0-34.0) Mean Corpuscular Hemoglobin 34.8 % Concent (32.0-36.0) Red Cell Distribution Width 12.4 % (11.6-17.2) Platelet Count 148 TH/MM3 (150-450) Mean Platelet Volume 8.3 FL (7.0-11.0) Sodium Level 137 MEQ/L (136-145) Potassium Level 4.1 MEQ/L (3.5-5.1) Chloride Level 104 MEQ/L (98-107) Carbon Dioxide Level 25.9 MEQ/L (21.0-32.0) Anion Gap 7 MEQ/L (5-15) Blood Urea Nitrogen 11 MG/DL (7-18) Creatinine 0.85 MG/DL (0.60-1.30) Estimat Glomerular Filtration 95 ML/MIN (>89) Rate Random Glucose 96 MG/DL (74-106) Calcium Level 7.8 MG/DL (8.5-10.1) Magnesium Level 1.8 MG/DL (1.5-2.5) Result Diagram: 10/11/16 0500 10/11/16 0500 EKG: NSR , sinus marybel (1) NSTEMI (non-ST elevated myocardial infarction) (2) Bradycardia (3) S/P CABG x 4 Plan: ASA, statin , no BB gentle diuresis pulm toileting italo, ezpap OOB ambulate Maryann Calderon Oct 11, 2016 16:38
--- NOTE | 2016-10-11 16:41 | HHI.FF ---
Face to Face Verification Diagnosis: (1) Bradycardia (2) NSTEMI (non-ST elevated myocardial infarction) (3) Multiple vessel coronary artery disease (4) S/P CABG x 4 Home Health Nursing Order: Signs/symptoms of disease process Wound care and dressing changes Nursing assessment with vital signs Instructions: Heart and Vascular Surgery patients *Special attention to sternal dressing Mandatory frequency Assess and evaluation, 4 days in a row The next week 3X week 2 times a week for 4 weeks 1 time a week for 5 weeks Schedule Heart and Vascular patients for full 60 day certification period Initial visit Review Open Heart Surgery Discharge Instructions (Sternal precautions, Activity, Elastic hose, Incision care, Driving, Incentive spirometry, Smoking, [place], Work and other) Need Betadine to paint incision Medication reconciliation Importance of follow up care/ check on appointments Make calendar record temperature daily When to call [facility] nurse, review instructions, phone list Incentive Spirometry, demonstration Visit 1- Begin discharge instruction for patient family and/ or caregiver using teach back method- Signs and symptoms of infection Disease characteristics Medicines and side effects Foods and nutrition/ appetite Infection control/ hand washing/ hygiene Visit 2- Continue teaching Discharge instructions- include additional information on smoking cessation , sternal dressing (sternal vac) Visit 3- Continue teaching- Cough and deep breathing, incision monitoring. Choose my plate Visit 4- Continue teaching- Discuss limitations Discuss how they are feeling Discuss progress toward goals Remaining visits- continue teaching and monitoring Home Health Aide Instructions: PREVENA Single Use Negative Wound Therapy System Caregiver Instruction Sheet 1. A Prevena dressing system was applied to the chest incision during surgery , to promote wound healing. It works via a suction device (negative pressure wound therapy) to remove low to moderate levels of exudate (drainage) and infectious materials. We recommend that the device stay in place for up to seven days, from day of surgery. 2. Day of Surgery___/ Day of Removal ____/18/07/16 3. The dressing should only be removed by a health associate director career services. Please arrange removal of device to coincide with Home Health visit and or with Nursing staff at Rehab 4. If skin reddening or irritation of skin occurs, or excessive drainage, please notify the Cardiovascular Surgeons office at [phone]. 5. Light showering is permissible; however the pump should be disconnected and placed in safe location, where it will not get wet. The dressing should not be exposed to direct spray or submerged in water. No bath tub / shower only. Ensure the end of the tubing attached to the dressing is facing down so that water does not enter the top of the tube. 6. To remove Prevena dressing: press purple button to turn off device / remove the suction. Then disconnect the tubing from the pump. The fixation strips should be stretched away from the skin and the dressing lifted at one corner and peeled back until it has been fully removed. 7. After removal, it is ok to shower daily using liquid dial soap and clean wash cloth, rinse and pat dry, and leave incision open to air dry. For any concerns regarding Prevena dressing, and or wounds, please contact Jud Hendricks, patient navigator at [phone] or notify the Cardiovascular Surgeons office at [phone]. Incentive spirometry Q1 hr x 10, while awake, also use acapella device hourly whole awake Sternal Breast Bone Precautions: NO pushing or pulling, ( pt must use sternal pillow to support chest with all activities and with coughing ( takes up to 3 months breast bone to heal ) Daily incision care: ok to shower daily, no tub bath. Wash all incisions with liquid dial soap, clean wash cloth to each site, rinse and pat dry. Observe for any signs of infection, such as drainage which is dark yellow, llanos, green or foul smelling. Immediately report to the surgeon any drainage from the chest incision, or legs, and for any abnormal drainage from the chest tube sites. Notify surgeon if any temp >101.5 degrees F. When specialty dressing removed/ or if you do not have one, continue to shower daily as above, then rinse and pat incision dry and paint with betadine daily x 5 days. Allow steri strips to fall off if you have any. Avoid lotions, creams, salves, oils, etc. for the first month Please see attached forms for additional instructions regarding post Open Heart specialty wound vacuum dressings. ALAN or Prevena , Dressing to be removed by Nursing staff on _10/16/16 F/U appointment: as per DC instructions: PCP in 2 weeks, CV surgeon 2 weeks, Iron Worker Apprentice 3-4 weeks For any questions regarding incisions/ dressing / meds / post op care or above Symptoms, Tuesday 8am-5pm Heart & Vascular Surgery Office ( Dr. Ball & Dr. Gagnon), After Hours / Nights (5pm -8am) Weekends and Holidays Please call [facility] Charge Nurse I have seen patient Quentin Doherty on 10/11/16. My clinical findings support the need for the requested home health care services because: Deconditioned w/ increased weakness I certify that my clinical findings support that this patient is homebound because: Post-op weakness Maryann Calderon Oct 11, 2016 16:41
[2016-10-11] MEDS: AMIODARONE 200 MG TAB PO SCH (20:50)
[2016-10-11] MEDS: ATORVASTATIN 80 MG TAB PO SCH (20:51)
[2016-10-11] MEDS: SENNOSIDES 8.6 MG TAB PO SCH (20:51)
[2016-10-12] VITALS (20 sets, daily range): BP systolic 130–148; BP diastolic 75–97; PULSE 68–92; RESP 18–19; TEMP 97.8–98.4; O2SAT 90–94
[2016-10-12] MEDS: oxyCODONE/ACETAMINOPHEN 5 MG/325 MG TAB PO PRN ×3 (01:04→20:17)
[2016-10-12] MEDS: INSULIN ASPART SUPPLEMENTAL SCALE SQ SCH ×5 (02:00→20:08)
[2016-10-12] MEDS: KETOROLAC TROMETHAMINE 30 MG/ML (IVP) VIAL IV PUSH PRN (04:20)
[2016-10-12] MEDS: PANTOPRAZOLE SOD 40 MG DELAYED RELEASE TAB PO SCH (04:23)
[2016-10-12 05:14] LABS: AUTOMATED NEUTROPHIL # 8.2 TH/MM3 (1.8-7.7); BASOPHIL % 0.2 % (0.0-2.0); EOSINOPHIL # 0.1 TH/MM3 (0-0.4); EOSINOPHIL % 1.2 % (0.0-4.0); HEMATOCRIT 34.8 % (39.0-51.0); HEMO FLAGS DIFF FINAL; LYMPH % 14.6 % (9.0-44.0); LYMPHOCYTE # 1.6 TH/MM3 (1.0-4.8); MEAN CELL VOLUME 89.7 FL (80.0-100.0); MEAN CORPUSCULAR HGB CONC 35.6 % (32.0-36.0); MONO % 9.2 % (0.0-8.0); NEUT % 74.8 % (16.0-70.0); PLATELET COUNT 156 TH/MM3 (150-450); RED BLOOD COUNT 3.88 MIL/MM3 (4.50-5.90); RED CELL DISTRIBUTION WIDTH 12.5 % (11.6-17.2); WHITE BLOOD COUNT 10.9 TH/MM3 (4.0-11.0)
[2016-10-12 05:32] LABS: BICARBONATE 26.7 MEQ/L (21.0-32.0); POTASSIUM 3.8 MEQ/L (3.5-5.1)
[2016-10-12] MEDS: RESP: ALBUTEROL 2.5 MG/IPRATROPIUM 0.5 MG NEB (SCH) NEB ×3 (07:35→19:23)
[2016-10-12] MEDS: amLODIPine BESYLATE 5 MG TAB PO SCH (08:22)
[2016-10-12] MEDS: DOCUSATE SODIUM 100 MG CAP PO SCH ×2 (08:22→20:05)
[2016-10-12] MEDS: MULTIVITAMINS/MINERALS THERAPEUTIC TAB PO SCH (08:23)
[2016-10-12] MEDS: ASPIRIN 81 MG CHEW TAB PO SCH (08:24)
[2016-10-12] MEDS: AMIODARONE 200 MG TAB PO SCH ×2 (08:24→20:05)
[2016-10-12] MEDS: CLOPIDOGREL 75 MG TAB PO SCH (08:25)
[2016-10-12] MEDS: SODIUM CHLORIDE 0.9% FLUSH 10 ML FLUSH IV FLUSH SCH ×2 (08:25→20:08)
[2016-10-12] MEDS: MAGNESIUM HYDROXIDE SUSP 30 ML CUP PO SCH (08:25)
[2016-10-12] MEDS: MUPIROCIN 2% OINT 1 APPLIC/GM SYR EACH NARE SCH ×2 (08:25→20:08)
[2016-10-12] MEDS: POLYETHYLENE GLYCOL 17 GM PKG PO SCH (08:25)
[2016-10-12] MEDS ORDERED: FUROSEMIDE 40 MG/4 ML VIAL IV PUSH ONE (08:30)
[2016-10-12] MEDS ORDERED: POTASSIUM CHLORIDE 10 MEQ CONTROLLED RELEASE TAB PO ONE (09:00)
[2016-10-12] MEDS ORDERED: POTASSIUM CHLORIDE 25 MEQ EFFERVESCENT TAB PO ONE (10:00)
[2016-10-12] MEDS: MAGNESIUM SULFATE 1 GM PREMIX 100 ML IV SCH ×2 (10:00→11:15)
--- NOTE | 2016-10-12 10:18 | PD.CAR.PN ---
CVT Progress Note CVT: POD #: 2 Subjective/Hospital Course: 51/ male developed chest pain while riding his bike, visiting the area 2/2 job, from [place] , ruled in for NSTEMI underwent cardiac cath by Dr Geronimo multivessel CAD/ baseline bradycardia EF 50% surgery : 10/10 1. Urgent Off-pump Coronary Artery Bypass Grafting x 4 with left internal mammary artery (ELLIOTT) to left anterior descending (LAD), reverse saphenous vein graft to the ramus marginalis (RM), reverse saphenous vein graft to the OM1, reverse saphenous vein graft to the distal RCA 2. Right Leg Endoscopic Vein [place] 3. Intraoperative Vein Mapping. 10/11 doing well on nasal cannula OOB to chair/ pulm toileting gentle diuresis 10/12 chest drained 200cc/ 12 hrs / leave chest tube n for now remains in NSR HR 78 will start low dose BB gentle diuresis Objective: Vital Signs Date Time Temp Pulse Resp B/P Pulse Ox O2 Delivery O2 Flow Rate FiO2 10/12/16 07:36 90 21 10/12/16 03:00 97.9 78 18 130/86 94 10/12/16 03:00 94 Room Air 10/11/16 23:00 95 Room Air 10/11/16 23:00 98.8 69 18 136/72 95 10/11/16 22:05 18 10/11/16 22:05 18 10/11/16 20:26 90 21 10/11/16 20:00 89 10/11/16 19:00 82 10/11/16 19:00 92 Room Air 10/11/16 19:00 98.4 82 18 134/79 92 10/11/16 18:00 76 10/11/16 17:00 90 10/11/16 16:00 75 10/11/16 15:45 97.6 76 18 148/95 97 10/11/16 15:45 97 Nasal Cannula 2.00 10/11/16 15:00 90 10/11/16 14:00 74 10/11/16 13:00 87 10/11/16 11:18 98 Nasal Cannula 2.00 10/11/16 11:18 78 10/11/16 11:18 98.6 61 16 154/111 95 Labs: Laboratory Tests Test 10/12/16 04:15 White Blood Count 10.9 TH/MM3 (4.0-11.0) Red Blood Count 3.88 MIL/MM3 (4.50-5.90) Hemoglobin 12.4 GM/DL (13.0-17.0) Hematocrit 34.8 % (39.0-51.0) Mean Corpuscular Volume 89.7 FL (80.0-100.0) Mean Corpuscular Hemoglobin 32.0 PG (27.0-34.0) Mean Corpuscular Hemoglobin 35.6 % Concent (32.0-36.0) Red Cell Distribution Width 12.5 % (11.6-17.2) Platelet Count 156 TH/MM3 (150-450) Mean Platelet Volume 8.6 FL (7.0-11.0) Neutrophils (%) (Auto) 74.8 % (16.0-70.0) Lymphocytes (%) (Auto) 14.6 % (9.0-44.0) Monocytes (%) (Auto) 9.2 % (0.0-8.0) Eosinophils (%) (Auto) 1.2 % (0.0-4.0) Basophils (%) (Auto) 0.2 % (0.0-2.0) Neutrophils # (Auto) 8.2 TH/MM3 (1.8-7.7) Lymphocytes # (Auto) 1.6 TH/MM3 (1.0-4.8) Monocytes # (Auto) 1.0 TH/MM3 (0-0.9) Eosinophils # (Auto) 0.1 TH/MM3 (0-0.4) Basophils # (Auto) 0.0 TH/MM3 (0-0.2) CBC Comment DIFF FINAL Differential Comment Sodium Level 138 MEQ/L (136-145) Potassium Level 3.8 MEQ/L (3.5-5.1) Chloride Level 103 MEQ/L (98-107) Carbon Dioxide Level 26.7 MEQ/L (21.0-32.0) Anion Gap 8 MEQ/L (5-15) Blood Urea Nitrogen 10 MG/DL (7-18) Creatinine 0.95 MG/DL (0.60-1.30) Estimat Glomerular Filtration 83 ML/MIN (>89) Rate Random Glucose 107 MG/DL (74-106) Calcium Level 8.3 MG/DL (8.5-10.1) Magnesium Level 2.0 MG/DL (1.5-2.5) Result Diagram: 10/12/16 0415 10/12/16 0415 Telemetry: NSR (1) NSTEMI (non-ST elevated myocardial infarction) (2) Bradycardia (3) S/P CABG x 4 Plan: ASA, statin , low dose BB gentle diuresis pulm toileting nebs, ezpap OOB ambulate leave chest tube in for now CM eval rehab Maryann Calderon Oct 12, 2016 10:18
--- NOTE | 2016-10-12 10:51 | PD.CARD.PN ---
Subjective Subjective Remarks No chest pain Up and ambulating without problem Objective Medications Current Medications Medications (Trade) Dose Ordered Sig/Octavia Route Start Time Stop Time Status Last Admin (Lipitor) 80 mg HS PO 10/08/16 21:00 10/11/16 20:51 (Bactroban Nasal 2% Oint) 1 applic BID EACH NARE 10/09/16 09:00 10/14/16 08:59 10/11/16 08:13 (NS Flush) 2 ml BID IV FLUSH 10/10/16 21:00 10/12/16 08:25 (NS Flush) 2 ml UNSCH PRN IV FLUSH 10/10/16 12:45 (Aspirin Chew) 81 mg DAILY PO 10/11/16 09:00 10/12/16 08:24 (Plavix) 75 mg DAILY PO 10/11/16 09:00 10/12/16 08:25 (Protonix) 40 mg DAILY@06 PO 10/11/16 06:00 10/12/16 04:23 (Tylenol) 650 mg Q4H PRN PO 10/10/16 12:45 (Toradol Inj) 15 mg Q6H PRN IV PUSH 10/10/16 14:00 10/12/16 13:59 10/12/16 04:20 (Zofran Inj) 4 mg Q6H PRN IV PUSH 10/10/16 12:45 (Apresoline Inj) 10 mg Q4H PRN IV 10/10/16 12:45 (Percocet 5-325 Mg) 1 tab Q4H PRN PO 10/11/16 09:00 10/12/16 08:21 (Percocet 5-325 Mg) 2 tab Q4H PRN PO 10/11/16 09:00 10/12/16 01:04 (Cordarone) 200 mg Q12HR PO 10/11/16 21:00 10/12/16 08:24 (Norvasc) 5 mg DAILY PO 10/11/16 11:00 10/12/16 08:22 (Colace) 100 mg BID PO 10/11/16 11:00 10/12/16 08:22 (Theragran M Tab) 1 tab DAILY PO 10/12/16 09:00 10/12/16 08:23 (Milk Of Magnesia Liq) 30 ml DAILY PO 10/12/16 09:00 10/12/16 08:25 (Miralax) 17 gm DAILY PO 10/12/16 09:00 10/12/16 08:25 (Senokot) 8.6 mg HS PO 10/11/16 21:00 10/11/16 20:51 (Fleets Enema (Adult)) 133 ml UNSCH PRN RECTAL 10/11/16 09:15 (NovoLOG SUPPLEMENTAL SCALE) 1 02,06,10,14,18,22 SQ 10/11/16 10:00 10/12/16 02:00 (D50w (Vial) Inj) 25 ml UNSCH PRN IV 10/11/16 09:15 Glucagon 1 mg 1 mg UNSCH PRN OTHER 10/11/16 09:15 (Magnesium Sulfate 1 Gm Premix) 100 ml @ 100 mls/hr Q1H IV 10/12/16 09:00 10/12/16 10:59 (Lopressor) 12.5 mg Q12HR PO 10/12/16 10:30 Vital Signs / I&O Vital Signs Date Time Temp Pulse Resp B/P Pulse Ox O2 Delivery O2 Flow Rate FiO2 10/12/16 07:36 90 21 10/12/16 03:00 97.9 78 18 130/86 94 10/12/16 03:00 94 Room Air 10/11/16 23:00 95 Room Air 10/11/16 23:00 98.8 69 18 136/72 95 10/11/16 22:05 18 10/11/16 22:05 18 10/11/16 20:26 90 21 10/11/16 20:00 89 10/11/16 19:00 82 10/11/16 19:00 92 Room Air 10/11/16 19:00 98.4 82 18 134/79 92 10/11/16 18:00 76 10/11/16 17:00 90 10/11/16 16:00 75 10/11/16 15:45 97.6 76 18 148/95 97 10/11/16 15:45 97 Nasal Cannula 2.00 10/11/16 15:00 90 10/11/16 14:00 74 10/11/16 13:00 87 10/11/16 11:18 98 Nasal Cannula 2.00 10/11/16 11:18 78 10/11/16 11:18 98.6 61 16 154/111 95 I/O 10/11/16 10/11/16 10/11/16 10/12/16 10/12/16 10/12/16 07:00 15:00 23:00 07:00 15:00 23:00 Intake Total 2060 ml 1090 ml 480 ml 730 ml Output Total 1175 ml 280 ml 1355 ml 2075 ml Balance 885 ml 810 ml -875 ml -1345 ml Intake Oral 960 ml 630 ml 480 ml 480 ml IV Total 850 ml 460 ml 0 ml 250 ml Albumin 250 ml Output Urine Total 795 ml 180 ml 1125 ml 1875 ml Chest Tube Drainage Total 380 ml 100 ml 230 ml 200 ml # Voids 2 # Bowel Movements 0 0 0 0 Physical Exam GENERAL: NAD SKIN: Warm and dry. HEAD: Atraumatic. Normocephalic. EYES: Pupils equal and round. No scleral icterus. No injection or drainage. ENT: No nasal bleeding or discharge. Mucous membranes pink and moist. NECK: Trachea midline. No JVD. CARDIOVASCULAR: Regular rate and rhythm. Incision clean/dry/intact RESPIRATORY: No accessory muscle use. Decreased breath sounds bilaterally GASTROINTESTINAL: Abdomen soft, non-tender, nondistended. Hepatic and splenic margins not palpable. MUSCULOSKELETAL: Extremities without clubbing, cyanosis, or edema. No obvious deformities. Right radial no hematoma neurovascularly intact distally NEUROLOGICAL: Awake and alert. No obvious cranial nerve deficits. PSYCHIATRIC: Appropriate mood and affect; insight and judgment normal. Laboratory Laboratory Tests Test 10/12/16 04:15 White Blood Count 10.9 TH/MM3 Red Blood Count 3.88 MIL/MM3 Hemoglobin 12.4 GM/DL Hematocrit 34.8 % Mean Corpuscular Volume 89.7 FL Mean Corpuscular Hemoglobin 32.0 PG Mean Corpuscular Hemoglobin 35.6 % Concent Red Cell Distribution Width 12.5 % Platelet Count 156 TH/MM3 Mean Platelet Volume 8.6 FL Neutrophils (%) (Auto) 74.8 % Lymphocytes (%) (Auto) 14.6 % Monocytes (%) (Auto) 9.2 % Eosinophils (%) (Auto) 1.2 % Basophils (%) (Auto) 0.2 % Neutrophils # (Auto) 8.2 TH/MM3 Lymphocytes # (Auto) 1.6 TH/MM3 Monocytes # (Auto) 1.0 TH/MM3 Eosinophils # (Auto) 0.1 TH/MM3 Basophils # (Auto) 0.0 TH/MM3 CBC Comment DIFF FINAL Differential Comment Sodium Level 138 MEQ/L Potassium Level 3.8 MEQ/L Chloride Level 103 MEQ/L Carbon Dioxide Level 26.7 MEQ/L Anion Gap 8 MEQ/L Blood Urea Nitrogen 10 MG/DL Creatinine 0.95 MG/DL Estimat Glomerular Filtration 83 ML/MIN Rate Random Glucose 107 MG/DL Calcium Level 8.3 MG/DL Magnesium Level 2.0 MG/DL Assessment and Plan Problem List: (1) NSTEMI (non-ST elevated myocardial infarction) (2) Bradycardia (3) S/P CABG x 4 Assessment and Plan 1) MVCAD s/p CABG POD#2 ELLIOTT to LAD SVG to Ramus SVG to OM SVG to RCA 2) Pre-operative echo with EF 50-55% 3) ASA/Plavix/Lipitor, agree with adding low dose BB to see response in the hospital 4) Chest tubes still in place with drainage Domingo Geronimo DO Oct 12, 2016 10:51
[2016-10-12] MEDS: METOPROLOL TARTRATE 25 MG TAB PO SCH ×2 (11:18→20:05)
--- NOTE | 2016-10-12 13:56 | HHI.PR ---
Subjective Remarks Patient doing very well, walking in the hallway, chest tube still in place He complain of swelling in his right lower extremity, no significant short of breath Objective Vitals Vital Signs Date Time Temp Pulse Resp B/P Pulse Ox O2 Delivery O2 Flow Rate FiO2 10/12/16 07:36 90 21 10/12/16 03:00 97.9 78 18 130/86 94 10/12/16 03:00 94 Room Air 10/11/16 23:00 95 Room Air 10/11/16 23:00 98.8 69 18 136/72 95 10/11/16 22:05 18 10/11/16 22:05 18 10/11/16 20:26 90 21 10/11/16 20:00 89 10/11/16 19:00 82 10/11/16 19:00 92 Room Air 10/11/16 19:00 98.4 82 18 134/79 92 10/11/16 18:00 76 10/11/16 17:00 90 10/11/16 16:00 75 10/11/16 15:45 97.6 76 18 148/95 97 10/11/16 15:45 97 Nasal Cannula 2.00 10/11/16 15:00 90 10/11/16 14:00 74 I/O 10/11/16 10/11/16 10/11/16 10/12/16 10/12/16 10/12/16 07:00 15:00 23:00 07:00 15:00 23:00 Intake Total 2060 ml 1090 ml 480 ml 730 ml Output Total 1175 ml 280 ml 1355 ml 2075 ml Balance 885 ml 810 ml -875 ml -1345 ml Intake Oral 960 ml 630 ml 480 ml 480 ml IV Total 850 ml 460 ml 0 ml 250 ml Albumin 250 ml Output Urine Total 795 ml 180 ml 1125 ml 1875 ml Chest Tube Drainage Total 380 ml 100 ml 230 ml 200 ml # Voids 2 # Bowel Movements 0 0 0 0 Result Diagram: 10/12/1641410/12/16414 Objective Remarks - GENERAL: This is a well-nourished, well-developed patient, doing well post CABG SKIN: No rashes, warm and dry HEAD: Atraumatic. Normocephalic. EYES: Pupils equal round and reactive. Extraocular motions intact. No scleral icterus. ENT: Nose without bleeding, or drainage, Airway patent. NECK: Trachea midline. Supple CARDIOVASCULAR: Regular rate and rhythm without murmurs, gallops, or rubs. RESPIRATORY: Fair air entry bilaterally. Chest tube in place GASTROINTESTINAL: Abdomen soft, non-tender, nondistended. Positive bowel sounds MUSCULOSKELETAL: Extremities without clubbing, cyanosis, or edema. Pedal pulses appreciated NEUROLOGICAL: Awake and alert. Moves all extremity. A/P Assessment and Plan 10/12: Doing well post op daily #2, walking in the hallway, heart rate improved in the upper 60s, planned by cardiology and surgery to try low dose beta marti while in the hospital, will follow along A/P: Chest pain multivessel CAD Non-STEMI status post heart catheter >> multiple vessels CAD with proximal LAD> > status post CABG 09/09 Bradycardia most likely due to athletic heart History of premature CAD Remotely tobacco abuse DVT prophylaxis patient on heparin drip Plan: Continue current care post CABG, surgery CVICU team following Patient is status post left heart catheter and CABG on 09/09, monitor hemodynamic status, BMP CBC Avoid beta marti at this time due to bradycardia Aspirin, nitroglycerin, high intensity statin with Lipitor 80 mg started Further plan per tunnel kiln operator Dez Gallo MD Oct 12, 2016 13:56
[2016-10-12] MEDS: ATORVASTATIN 80 MG TAB PO SCH (20:05)
[2016-10-12] MEDS: SENNOSIDES 8.6 MG TAB PO SCH (20:05)
[2016-10-13] VITALS (26 sets, daily range): BP systolic 108–138; BP diastolic 65–92; PULSE 68–93; RESP 18–20; TEMP 97.8–98.8; O2SAT 91–94
[2016-10-13] MEDS: oxyCODONE/ACETAMINOPHEN 5 MG/325 MG TAB PO PRN ×4 (00:07→21:36)
[2016-10-13] MEDS: PANTOPRAZOLE SOD 40 MG DELAYED RELEASE TAB PO SCH (05:08)
[2016-10-13 06:52] LABS: BICARBONATE 27.4 MEQ/L (21.0-32.0); POTASSIUM 3.9 MEQ/L (3.5-5.1)
[2016-10-13] MEDS: INSULIN ASPART SUPPLEMENTAL SCALE SQ SCH ×4 (07:00→21:00)
[2016-10-13] MEDS: RESP: ALBUTEROL 2.5 MG/IPRATROPIUM 0.5 MG NEB (SCH) NEB ×2 (08:10→12:52)
[2016-10-13] MEDS ORDERED: MAGNESIUM SULFATE 1 GM PREMIX 100 ML IV ONE (08:15)
[2016-10-13] MEDS ORDERED: POTASSIUM CHLORIDE 20 MEQ CONTROLLED RELEASE TAB PO ONE (08:15)
[2016-10-13] MEDS: MUPIROCIN 2% OINT 1 APPLIC/GM SYR EACH NARE SCH ×2 (08:36→21:37)
[2016-10-13] MEDS: CLOPIDOGREL 75 MG TAB PO SCH (08:57)
[2016-10-13] MEDS: DOCUSATE SODIUM 100 MG CAP PO SCH ×2 (08:57→21:37)
[2016-10-13] MEDS: AMIODARONE 200 MG TAB PO SCH ×2 (08:57→21:37)
[2016-10-13] MEDS: MULTIVITAMINS/MINERALS THERAPEUTIC TAB PO SCH (08:58)
[2016-10-13] MEDS: METOPROLOL TARTRATE 25 MG TAB PO SCH ×2 (08:58→21:37)
[2016-10-13] MEDS: ASPIRIN 81 MG CHEW TAB PO SCH (08:58)
[2016-10-13] MEDS: amLODIPine BESYLATE 5 MG TAB PO SCH (08:58)
[2016-10-13] MEDS: SODIUM CHLORIDE 0.9% FLUSH 10 ML FLUSH IV FLUSH SCH ×2 (08:59→21:37)
[2016-10-13] MEDS: MAGNESIUM HYDROXIDE SUSP 30 ML CUP PO SCH (08:59)
[2016-10-13] MEDS: POLYETHYLENE GLYCOL 17 GM PKG PO SCH (08:59)
[2016-10-13] MEDS ORDERED: PILL SPLITTER OTHER PRN (11:00)
--- NOTE | 2016-10-13 11:28 | PD.CAR.PN ---
CVT Progress Note Subjective/Hospital Course: 51/ male developed chest pain while riding his bike, visiting the area 2/2 job, from [place] , ruled in for NSTEMI underwent cardiac cath by Dr Geronimo multivessel CAD/ baseline bradycardia EF 50% surgery : 10/10 1. Urgent Off-pump Coronary Artery Bypass Grafting x 4 with left internal mammary artery (ELLIOTT) to left anterior descending (LAD), reverse saphenous vein graft to the ramus marginalis (RM), reverse saphenous vein graft to the OM1, reverse saphenous vein graft to the distal RCA 2. Right Leg Endoscopic Vein [place] 3. Intraoperative Vein Mapping. 10/11 doing well on nasal cannula OOB to chair/ pulm toileting gentle diuresis 10/12 chest drained 200cc/ 12 hrs / leave chest tube n for now remains in NSR HR 78 will start low dose BB gentle diuresis 10/13 chest tube removed without difficulty on room air ambulate decrease amlodipine dose continue low dose BB Objective: Vital Signs Date Time Temp Pulse Resp B/P Pulse Ox O2 Delivery O2 Flow Rate FiO2 10/13/16 10:01 88 10/13/16 09:56 92 Room Air 10/13/16 09:00 82 10/13/16 08:10 92 21 10/13/16 08:03 98.7 75 18 116/65 91 10/13/16 08:00 86 10/13/16 07:00 69 10/13/16 06:00 78 10/13/16 04:00 73 10/13/16 04:00 98.4 79 18 108/65 91 10/13/16 04:00 92 Room Air 10/13/16 02:00 69 10/13/16 00:00 73 10/13/16 00:00 98.4 73 18 128/84 93 10/13/16 00:00 92 Room Air 10/12/16 22:00 71 10/12/16 20:00 98.4 92 18 141/93 93 10/12/16 20:00 92 10/12/16 20:00 93 Room Air 10/12/16 19:23 92 10/12/16 19:00 82 10/12/16 18:00 82 10/12/16 17:00 80 10/12/16 16:00 72 10/12/16 15:51 92 Room Air 10/12/16 15:20 97.8 79 19 133/75 92 10/12/16 15:00 84 10/12/16 14:00 78 10/12/16 13:00 68 10/12/16 12:00 88 10/12/16 11:30 98.0 78 19 148/97 93 Labs: Laboratory Tests Test 10/13/16 05:00 Sodium Level 138 MEQ/L (136-145) Potassium Level 3.9 MEQ/L (3.5-5.1) Chloride Level 102 MEQ/L (98-107) Carbon Dioxide Level 27.4 MEQ/L (21.0-32.0) Anion Gap 9 MEQ/L (5-15) Blood Urea Nitrogen 14 MG/DL (7-18) Creatinine 1.02 MG/DL (0.60-1.30) Estimat Glomerular Filtration 77 ML/MIN (>89) Rate Random Glucose 106 MG/DL (74-106) Calcium Level 8.3 MG/DL (8.5-10.1) Magnesium Level 2.0 MG/DL (1.5-2.5) Result Diagram: 10/12/16 0415 10/13/16 0500 Telemetry: NSR (1) NSTEMI (non-ST elevated myocardial infarction) (2) Bradycardia Plan: resolved (3) S/P CABG x 4 Plan: ASA, statin , low dose BB gentle diuresis pulm toileting nebs, ezpap OOB ambulate chest tubes removed CM [facility] / eval for appointment with Dr Ball next week and then evdevonte for travel back to [place] Maryann Calderon Oct 13, 2016 11:28
--- NOTE | 2016-10-13 11:49 | PD.CARD.PN ---
Subjective Subjective Remarks No chest pain, no shortness of breath Objective Medications Current Medications Medications (Trade) Dose Ordered Sig/Octavia Route Start Time Stop Time Status Last Admin (Lipitor) 80 mg HS PO 10/08/16 21:00 10/12/16 20:05 (Bactroban Nasal 2% Oint) 1 applic BID EACH NARE 10/09/16 09:00 10/14/16 08:59 10/11/16 08:13 (NS Flush) 2 ml BID IV FLUSH 10/10/16 21:00 10/13/16 08:59 (NS Flush) 2 ml UNSCH PRN IV FLUSH 10/10/16 12:45 (Aspirin Chew) 81 mg DAILY PO 10/11/16 09:00 10/13/16 08:58 (Plavix) 75 mg DAILY PO 10/11/16 09:00 10/13/16 08:57 (Protonix) 40 mg DAILY@06 PO 10/11/16 06:00 10/13/16 05:08 (Tylenol) 650 mg Q4H PRN PO 10/10/16 12:45 10/12/16 15:26 (Zofran Inj) 4 mg Q6H PRN IV PUSH 10/10/16 12:45 (Percocet 5-325 Mg) 1 tab Q4H PRN PO 10/11/16 09:00 10/13/16 08:59 (Percocet 5-325 Mg) 2 tab Q4H PRN PO 10/11/16 09:00 10/13/16 00:07 (Cordarone) 200 mg Q12HR PO 10/11/16 21:00 10/13/16 08:57 (Colace) 100 mg BID PO 10/11/16 11:00 10/13/16 08:57 (Theragran M Tab) 1 tab DAILY PO 10/12/16 09:00 10/13/16 08:58 (Milk Of Magnesia Liq) 30 ml DAILY PO 10/12/16 09:00 10/13/16 08:59 (Miralax) 17 gm DAILY PO 10/12/16 09:00 10/13/16 08:59 (Senokot) 8.6 mg HS PO 10/11/16 21:00 10/12/16 20:05 (Fleets Enema (Adult)) 133 ml UNSCH PRN RECTAL 10/11/16 09:15 (D50w (Vial) Inj) 25 ml UNSCH PRN IV 10/11/16 09:15 (Glucagon Inj) 1 mg UNSCH PRN OTHER 10/11/16 09:15 (Lopressor) 12.5 mg Q12HR PO 10/12/16 10:30 10/13/16 08:58 (NovoLOG SUPPLEMENTAL SCALE) 1 ACHS SQ 10/12/16 16:00 (Norvasc) 2.5 mg DAILY PO 10/14/16 09:00 (Pill Splitter) 1 ea UNSCH PRN OTHER 10/13/16 11:00 Vital Signs / I&O Vital Signs Date Time Temp Pulse Resp B/P Pulse Ox O2 Delivery O2 Flow Rate FiO2 10/13/16 10:01 88 10/13/16 09:56 92 Room Air 10/13/16 09:00 82 10/13/16 08:10 92 21 10/13/16 08:03 98.7 75 18 116/65 91 10/13/16 08:00 86 10/13/16 07:00 69 10/13/16 06:00 78 10/13/16 04:00 73 10/13/16 04:00 98.4 79 18 108/65 91 10/13/16 04:00 92 Room Air 10/13/16 02:00 69 10/13/16 00:00 73 10/13/16 00:00 98.4 73 18 128/84 93 10/13/16 00:00 92 Room Air 10/12/16 22:00 71 10/12/16 20:00 98.4 92 18 141/93 93 10/12/16 20:00 92 10/12/16 20:00 93 Room Air 10/12/16 19:23 92 10/12/16 19:00 82 10/12/16 18:00 82 10/12/16 17:00 80 10/12/16 16:00 72 10/12/16 15:51 92 Room Air 10/12/16 15:20 97.8 79 19 133/75 92 10/12/16 15:00 84 10/12/16 14:00 78 10/12/16 13:00 68 10/12/16 12:00 88 I/O 4/25/10/12/16 10/12/16 10/13/16 10/13/16 10/13/16 07:00 15:00 23:00 07:00 15:00 23:00 Intake Total 730 ml 720 ml Output Total 2075 ml 1475 ml 1180 ml Balance -1345 ml -1475 ml -460 ml Intake Oral 480 ml 720 ml IV Total 250 ml 0 ml Output Urine Total 1875 ml 1275 ml 1150 ml Chest Tube Drainage Total 200 ml 200 ml 30 ml # Bowel Movements 0 0 0 Physical Exam GENERAL: NAD SKIN: Warm and dry. HEAD: Atraumatic. Normocephalic. EYES: Pupils equal and round. No scleral icterus. No injection or drainage. ENT: No nasal bleeding or discharge. Mucous membranes pink and moist. NECK: Trachea midline. No JVD. CARDIOVASCULAR: Regular rate and rhythm. Incision clean/dry/intact RESPIRATORY: No accessory muscle use. Decreased breath sounds bilaterally GASTROINTESTINAL: Abdomen soft, non-tender, nondistended. Hepatic and splenic margins not palpable. MUSCULOSKELETAL: Extremities without clubbing, cyanosis, or edema. No obvious deformities. Right radial no hematoma neurovascularly intact distally NEUROLOGICAL: Awake and alert. No obvious cranial nerve deficits. PSYCHIATRIC: Appropriate mood and affect; insight and judgment normal. Laboratory Laboratory Tests Test 10/13/16 05:00 Sodium Level 138 MEQ/L Potassium Level 3.9 MEQ/L Chloride Level 102 MEQ/L Carbon Dioxide Level 27.4 MEQ/L Anion Gap 9 MEQ/L Blood Urea Nitrogen 14 MG/DL Creatinine 1.02 MG/DL Estimat Glomerular Filtration 77 ML/MIN Rate Random Glucose 106 MG/DL Calcium Level 8.3 MG/DL Magnesium Level 2.0 MG/DL Assessment and Plan Problem List: (1) NSTEMI (non-ST elevated myocardial infarction) (2) Bradycardia (3) S/P CABG x 4 Assessment and Plan 1) MVCAD s/p CABG POD#3 ELLIOTT to LAD SVG to Ramus SVG to OM SVG to RCA 2) Pre-operative echo with EF 50-55% 3) ASA/Plavix/Lipitor, agree with adding low dose BB to see response in the hospital, heart rate currently stable Domingo Geronimo DO Oct 13, 2016 11:49
--- NOTE | 2016-10-13 16:58 | HHI.PR ---
Objective Vitals Vital Signs Date Time Temp Pulse Resp B/P Pulse Ox O2 Delivery O2 Flow Rate FiO2 10/13/16 16:05 85 10/13/16 15:48 98.5 75 18 125/72 91 10/13/16 15:43 93 Room Air 10/13/16 15:00 70 10/13/16 14:05 85 10/13/16 13:00 78 10/13/16 12:44 95 Room Air 10/13/16 12:37 Nasal Cannula 2.00 10/13/16 12:22 84 10/13/16 11:15 97.8 70 18 132/87 91 10/13/16 11:00 85 10/13/16 10:01 88 10/13/16 09:56 92 Room Air 10/13/16 09:00 82 10/13/16 08:10 92 21 10/13/16 08:03 98.7 75 18 116/65 91 10/13/16 08:00 86 10/13/16 07:00 69 10/13/16 06:00 78 10/13/16 04:00 73 10/13/16 04:00 98.4 79 18 108/65 91 10/13/16 04:00 92 Room Air 10/13/16 02:00 69 10/13/16 00:00 73 10/13/16 00:00 98.4 73 18 128/84 93 10/13/16 00:00 92 Room Air 10/12/16 22:00 71 10/12/16 20:00 98.4 92 18 141/93 93 10/12/16 20:00 92 10/12/16 20:00 93 Room Air 10/12/16 19:23 92 10/12/16 19:00 82 10/12/16 18:00 82 10/12/16 17:00 80 I/O 10/12/16 10/12/16 10/12/16 10/13/16 10/13/16 10/13/16 07:00 15:00 23:00 07:00 15:00 23:00 Intake Total 730 ml 720 ml Output Total 2075 ml 1475 ml 1180 ml Balance -1345 ml -1475 ml -460 ml Intake Oral 480 ml 720 ml IV Total 250 ml 0 ml Output Urine Total 1875 ml 1275 ml 1150 ml Chest Tube Drainage Total 200 ml 200 ml 30 ml # Bowel Movements 0 0 0 Result Diagram: 10/12/16 0415 10/13/16 0500 Objective Remarks - GENERAL: This is a well-nourished, well-developed patient, doing well post CABG SKIN: No rashes, warm and dry HEAD: Atraumatic. Normocephalic. EYES: Pupils equal round and reactive. Extraocular motions intact. No scleral icterus. ENT: Nose without bleeding, or drainage, Airway patent. NECK: Trachea midline. Supple CARDIOVASCULAR: Regular rate and rhythm without murmurs, gallops, or rubs. RESPIRATORY: Fair air entry bilaterally. Chest tube in place GASTROINTESTINAL: Abdomen soft, non-tender, nondistended. Positive bowel sounds MUSCULOSKELETAL: Extremities without clubbing, cyanosis, or edema. Pedal pulses appreciated NEUROLOGICAL: Awake and alert. Moves all extremity. 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
--- NOTE | 2016-10-13 18:09 | HHI.PR ---
Subjective Remarks Patient doing well sitting on the edge of the bed, his concern about post discharge need to get a hotel since is not from the area he has to be sticking around until he stable to go back to [place] No chest pain or short of breath or fever or chills Objective Vitals Vital Signs Date Time Temp Pulse Resp B/P Pulse Ox O2 Delivery O2 Flow Rate FiO2 10/13/16 17:03 93 10/13/16 16:05 85 10/13/16 15:48 98.5 75 18 125/72 91 10/13/16 15:43 93 Room Air 10/13/16 15:00 70 10/13/16 14:05 85 10/13/16 13:00 78 10/13/16 12:44 95 Room Air 10/13/16 12:37 Nasal Cannula 2.00 10/13/16 12:22 84 10/13/16 11:15 97.8 70 18 132/87 91 10/13/16 11:00 85 10/13/16 10:01 88 10/13/16 09:56 92 Room Air 10/13/16 09:00 82 10/13/16 08:10 92 21 10/13/16 08:03 98.7 75 18 116/65 91 10/13/16 08:00 86 10/13/16 07:00 69 10/13/16 06:00 78 10/13/16 04:00 73 10/13/16 04:00 98.4 79 18 108/65 91 10/13/16 04:00 92 Room Air 10/13/16 02:00 69 10/13/16 00:00 73 10/13/16 00:00 98.4 73 18 128/84 93 10/13/16 00:00 92 Room Air 10/12/16 22:00 71 10/12/16 20:00 98.4 92 18 141/93 93 10/12/16 20:00 92 10/12/16 20:00 93 Room Air 10/12/16 19:23 92 10/12/16 19:00 82 I/O 10/12/16 10/12/16 10/12/16 10/13/16 10/13/16 10/13/16 07:00 15:00 23:00 07:00 15:00 23:00 Intake Total 730 ml 720 ml 1100 ml Output Total 2075 ml 1475 ml 1180 ml 1625 ml Balance -1345 ml -1475 ml -460 ml -525 ml Intake Oral 480 ml 720 ml 1000 ml IV Total 250 ml 0 ml 100 ml Output Urine Total 1875 ml 1275 ml 1150 ml 1625 ml Chest Tube Drainage Total 200 ml 200 ml 30 ml # Bowel Movements 0 0 0 1 Result Diagram: 10/12/16 0415 10/13/16 0500 Objective Remarks - GENERAL: This is a well-nourished, well-developed patient, doing well post CABG SKIN: No rashes, warm and dry HEAD: Atraumatic. Normocephalic. EYES: Pupils equal round and reactive. Extraocular motions intact. No scleral icterus. ENT: Nose without bleeding, or drainage, Airway patent. NECK: Trachea midline. Supple CARDIOVASCULAR: Regular rate and rhythm without murmurs, gallops, or rubs. RESPIRATORY: Fair air entry bilaterally. Chest tube in place GASTROINTESTINAL: Abdomen soft, non-tender, nondistended. Positive bowel sounds MUSCULOSKELETAL: Extremities without clubbing, cyanosis, or edema. Pedal pulses appreciated NEUROLOGICAL: Awake and alert. Moves all extremity. 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
[2016-10-13] MEDS: SENNOSIDES 8.6 MG TAB PO SCH (21:38)
[2016-10-13] MEDS: ATORVASTATIN 80 MG TAB PO SCH (21:41)
[2016-10-14] VITALS (18 sets, daily range): BP systolic 103–107; BP diastolic 67–71; PULSE 57–78; RESP 16–20; TEMP 97.9–98.7; O2SAT 92–95
[2016-10-14] MEDS: oxyCODONE/ACETAMINOPHEN 5 MG/325 MG TAB PO PRN ×2 (04:11→09:33)
--- NOTE | 2016-10-14 04:45 | RADRPT ---
EXAM DATE/TIME: 10/14/2016 03:40 [facility] COMPARISON: CHEST SINGLE AP, October 11, 2016, 5:05. INDICATIONS : Shortness of breath MEDICAL HISTORY : None. SURGICAL HISTORY : CABG. ENCOUNTER: Subsequent ACUITY: 3 days PAIN SCORE: 5/10 LOCATION: Bilateral chest FINDINGS: The left chest tube has been removed. There is a small left apical pneumothorax with 6 mm of separati on. There are scattered areas of atelectasis in both lower lungs. The heart size is stable. CONCLUSION: Small left apical pneumothorax with 6 mm of separation. Kike Barriga MD on October 14, 2016 at 4:43 Board Certified Radiologist. This report was verified electronically.
[2016-10-14] MEDS: INSULIN ASPART SUPPLEMENTAL SCALE SQ SCH ×2 (06:06→11:00)
[2016-10-14] MEDS: PANTOPRAZOLE SOD 40 MG DELAYED RELEASE TAB PO SCH (06:06)
[2016-10-14 06:15] LABS: HEMATOCRIT 33.1 % (39.0-51.0); MEAN CELL VOLUME 90.6 FL (80.0-100.0); MEAN CORPUSCULAR HEMOGLOBIN 31.6 PG (27.0-34.0); MEAN CORPUSCULAR HGB CONC 34.9 % (32.0-36.0); PLATELET COUNT 192 TH/MM3 (150-450); RED BLOOD COUNT 3.65 MIL/MM3 (4.50-5.90); RED CELL DISTRIBUTION WIDTH 12.5 % (11.6-17.2); REVIEW FLAG FINAL; WHITE BLOOD COUNT 7.6 TH/MM3 (4.0-11.0)
[2016-10-14] MEDS ORDERED: POTASSIUM CHLORIDE 20 MEQ CONTROLLED RELEASE TAB PO ONE (08:30)
[2016-10-14] MEDS ORDERED: MAGNESIUM SULFATE 1 GM PREMIX 100 ML IV ONE (08:30)
[2016-10-14] MEDS ORDERED: amLODIPine BESYLATE 5 MG TAB PO SCH (09:00)
[2016-10-14] MEDS: SODIUM CHLORIDE 0.9% FLUSH 10 ML FLUSH IV FLUSH SCH (09:32)
[2016-10-14] MEDS: DOCUSATE SODIUM 100 MG CAP PO SCH (09:32)
[2016-10-14] MEDS: ASPIRIN 81 MG CHEW TAB PO SCH (09:32)
[2016-10-14] MEDS: AMIODARONE 200 MG TAB PO SCH (09:33)
[2016-10-14] MEDS: CLOPIDOGREL 75 MG TAB PO SCH (09:33)
[2016-10-14] MEDS: MAGNESIUM HYDROXIDE SUSP 30 ML CUP PO SCH (09:34)
[2016-10-14] MEDS: METOPROLOL TARTRATE 25 MG TAB PO SCH (09:34)
[2016-10-14] MEDS: MULTIVITAMINS/MINERALS THERAPEUTIC TAB PO SCH (09:34)
[2016-10-14] MEDS: POLYETHYLENE GLYCOL 17 GM PKG PO SCH (09:34)
--- NOTE | 2016-10-14 10:04 | HHI.PR ---
Subjective Remarks doing well pain is 2/10 chest but tolerable 6 mm pneumothx on cxr , cvs ff afebrile pt got a hotel room to stay in after discharge Objective Vitals Vital Signs Date Time Temp Pulse Resp B/P Pulse Ox O2 Delivery O2 Flow Rate FiO2 10/14/16 08:40 93 21 10/14/16 06:00 64 10/14/16 05:10 16 10/14/16 05:00 66 10/14/16 04:00 78 10/14/16 03:00 69 10/14/16 03:00 98.7 67 20 104/71 92 10/14/16 03:00 92 Room Air 10/14/16 02:00 69 10/14/16 01:00 72 10/14/16 00:00 74 10/13/16 23:00 94 Room Air 10/13/16 23:00 98.3 70 20 114/71 94 10/13/16 23:00 68 10/13/16 22:00 78 10/13/16 21:00 76 10/13/16 20:00 94 Room Air 10/13/16 20:00 80 10/13/16 20:00 98.8 70 20 138/92 94 10/13/16 19:19 94 21 10/13/16 19:00 77 10/13/16 18:27 80 10/13/16 17:03 93 10/13/16 16:05 85 10/13/16 15:48 98.5 75 18 125/72 91 10/13/16 15:43 93 Room Air 10/13/16 15:00 70 10/13/16 14:05 85 10/13/16 13:00 78 10/13/16 12:44 95 Room Air 10/13/16 12:37 Nasal Cannula 2.00 10/13/16 12:22 84 10/13/16 11:15 97.8 70 18 132/87 91 10/13/16 11:00 85 I/O 10/13/16 10/13/16 10/13/16 10/14/16 10/14/16 10/14/16 07:00 15:00 23:00 07:00 15:00 23:00 Intake Total 720 ml 1100 ml 1200 ml Output Total 1180 ml 1625 ml 2550 ml Balance -460 ml -525 ml -1350 ml Intake Oral 720 ml 1000 ml 1200 ml IV Total 0 ml 100 ml Output Urine Total 1150 ml 1625 ml 2550 ml Chest Tube Drainage Total 30 ml # Bowel Movements 0 1 0 Result Diagram: 10/14/16 0548 10/13/16 0500 Objective Remarks - GENERAL: This is a well-nourished, well-developed patient, doing well post CABG SKIN: No rashes, warm and dry HEAD: Atraumatic. Normocephalic. EYES: Pupils equal round and reactive. Extraocular motions intact. No scleral icterus. ENT: Nose without bleeding, or drainage, Airway patent. NECK: Trachea midline. Supple CARDIOVASCULAR: Regular rate and rhythm without murmurs, gallops, or rubs. RESPIRATORY: Fair air entry bilaterally. GASTROINTESTINAL: Abdomen soft, non-tender, nondistended. Positive bowel sounds MUSCULOSKELETAL: Extremities without clubbing, cyanosis, or edema. Pedal pulses appreciated NEUROLOGICAL: Awake and alert. Moves all extremity. 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
--- NOTE | 2016-10-14 10:19 | RSPPFT ---
DATE OF PROCEDURE: 10/09/16 COMMENTS: The forced vital capacity, FEV1, FEV1/FVC ratio and FEF 25-75 are all normal. IMPRESSION: This is a normal spirometry.
--- NOTE | 2016-10-14 10:20 | PD.CARD.PN ---
Subjective Subjective Remarks No chest pain, no shortness of breath Up and ambulating Objective Medications Current Medications Medications (Trade) Dose Ordered Sig/Octavia Route Start Time Stop Time Status Last Admin (Lipitor) 80 mg HS PO 10/08/16 21:00 10/13/16 21:41 (NS Flush) 2 ml BID IV FLUSH 10/10/16 21:00 10/14/16 09:32 (NS Flush) 2 ml UNSCH PRN IV FLUSH 10/10/16 12:45 (Aspirin Chew) 81 mg DAILY PO 10/11/16 09:00 10/14/16 09:32 (Plavix) 75 mg DAILY PO 10/11/16 09:00 10/14/16 09:33 (Protonix) 40 mg DAILY@06 PO 10/11/16 06:00 10/14/16 06:06 (Tylenol) 650 mg Q4H PRN PO 10/10/16 12:45 10/12/16 15:26 (Zofran Inj) 4 mg Q6H PRN IV PUSH 10/10/16 12:45 (Percocet 5-325 Mg) 1 tab Q4H PRN PO 10/11/16 09:00 10/14/16 09:33 (Percocet 5-325 Mg) 2 tab Q4H PRN PO 10/11/16 09:00 10/13/16 00:07 (Cordarone) 200 mg Q12HR PO 10/11/16 21:00 10/14/16 09:33 (Colace) 100 mg BID PO 10/11/16 11:00 10/14/16 09:32 (Theragran M Tab) 1 tab DAILY PO 10/12/16 09:00 10/14/16 09:34 (Milk Of Magnesia Liq) 30 ml DAILY PO 10/12/16 09:00 10/14/16 09:34 (Miralax) 17 gm DAILY PO 10/12/16 09:00 10/14/16 09:34 (Senokot) 8.6 mg HS PO 10/11/16 21:00 10/13/16 21:38 (Fleets Enema (Adult)) 133 ml UNSCH PRN RECTAL 10/11/16 09:15 (D50w (Vial) Inj) 25 ml UNSCH PRN IV 10/11/16 09:15 (Glucagon Inj) 1 mg UNSCH PRN OTHER 10/11/16 09:15 (Lopressor) 12.5 mg Q12HR PO 10/12/16 10:30 10/14/16 09:34 (NovoLOG SUPPLEMENTAL SCALE) 1 ACHS SQ 10/12/16 16:00 (Norvasc) 2.5 mg DAILY PO 10/14/16 09:00 10/14/16 09:33 (Pill Splitter) 1 ea UNSCH PRN OTHER 10/13/16 11:00 Vital Signs / I&O Vital Signs Date Time Temp Pulse Resp B/P Pulse Ox O2 Delivery O2 Flow Rate FiO2 10/14/16 08:40 93 21 10/14/16 06:00 64 10/14/16 05:10 16 10/14/16 05:00 66 10/14/16 04:00 78 10/14/16 03:00 69 10/14/16 03:00 98.7 67 20 104/71 92 10/14/16 03:00 92 Room Air 10/14/16 02:00 69 10/14/16 01:00 72 10/14/16 00:00 74 10/13/16 23:00 94 Room Air 10/13/16 23:00 98.3 70 20 114/71 94 10/13/16 23:00 68 10/13/16 22:00 78 10/13/16 21:00 76 10/13/16 20:00 94 Room Air 10/13/16 20:00 80 10/13/16 20:00 98.8 70 20 138/92 94 10/13/16 19:19 94 21 10/13/16 19:00 77 10/13/16 18:27 80 10/13/16 17:03 93 10/13/16 16:05 85 10/13/16 15:48 98.5 75 18 125/72 91 10/13/16 15:43 93 Room Air 10/13/16 15:00 70 10/13/16 14:05 85 10/13/16 13:00 78 10/13/16 12:44 95 Room Air 10/13/16 12:37 Nasal Cannula 2.00 10/13/16 12:22 84 10/13/16 11:15 97.8 70 18 132/87 91 10/13/16 11:00 85 I/O 10/13/16 10/13/16 10/13/16 10/14/16 10/14/16 10/14/16 07:00 15:00 23:00 07:00 15:00 23:00 Intake Total 720 ml 1100 ml 1200 ml Output Total 1180 ml 1625 ml 2550 ml Balance -460 ml -525 ml -1350 ml Intake Oral 720 ml 1000 ml 1200 ml IV Total 0 ml 100 ml Output Urine Total 1150 ml 1625 ml 2550 ml Chest Tube Drainage Total 30 ml # Bowel Movements 0 1 0 Physical Exam GENERAL: NAD SKIN: Warm and dry. HEAD: Atraumatic. Normocephalic. EYES: Pupils equal and round. No scleral icterus. No injection or drainage. ENT: No nasal bleeding or discharge. Mucous membranes pink and moist. NECK: Trachea midline. No JVD. CARDIOVASCULAR: Regular rate and rhythm. Incision clean/dry/intact RESPIRATORY: No accessory muscle use. Decreased breath sounds bilaterally GASTROINTESTINAL: Abdomen soft, non-tender, nondistended. Hepatic and splenic margins not palpable. MUSCULOSKELETAL: Extremities without clubbing, cyanosis, or edema. No obvious deformities. Right radial no hematoma neurovascularly intact distally NEUROLOGICAL: Awake and alert. No obvious cranial nerve deficits. PSYCHIATRIC: Appropriate mood and affect; insight and judgment normal. Laboratory Laboratory Tests Test 10/14/16 05:48 White Blood Count 7.6 TH/MM3 Red Blood Count 3.65 MIL/MM3 Hemoglobin 11.5 GM/DL Hematocrit 33.1 % Mean Corpuscular Volume 90.6 FL Mean Corpuscular Hemoglobin 31.6 PG Mean Corpuscular Hemoglobin 34.9 % Concent Red Cell Distribution Width 12.5 % Platelet Count 192 TH/MM3 Mean Platelet Volume 8.1 FL Assessment and Plan Problem List: (1) NSTEMI (non-ST elevated myocardial infarction) (2) Bradycardia (3) S/P CABG x 4 Assessment and Plan 1) MVCAD s/p CABG POD#4 ELLIOTT to LAD SVG to Ramus SVG to OM SVG to RCA 2) Pre-operative echo with EF 50-55% 3) ASA/Plavix/Lipitor/BB 4) Needs cardiology follow up when back home Domingo Geronimo DO Oct 14, 2016 10:20
--- NOTE | 2016-10-14 10:28 | PD.CAR.PN ---
CVT Progress Note Subjective/Hospital Course: 51/ male developed chest pain while riding his bike, visiting the area 2/2 job, from [place] , ruled in for NSTEMI underwent cardiac cath by Dr Geronimo multivessel CAD/ baseline bradycardia EF 50% surgery : 10/10 1. Urgent Off-pump Coronary Artery Bypass Grafting x 4 with left internal mammary artery (ELLIOTT) to left anterior descending (LAD), reverse saphenous vein graft to the ramus marginalis (RM), reverse saphenous vein graft to the OM1, reverse saphenous vein graft to the distal RCA 2. Right Leg Endoscopic Vein [place] 3. Intraoperative Vein Mapping. 10/11 doing well on nasal cannula OOB to chair/ pulm toileting gentle diuresis 10/12 chest drained 200cc/ 12 hrs / leave chest tube n for now remains in NSR HR 78 will start low dose BB gentle diuresis 10/13 chest tube removed without difficulty on room air ambulate decrease amlodipine dose continue low dose BB 10/14 cxr eval , small left apical PTX 6mm 02 sat 94% RA few crackles left base, gentle diuresis eval for dc today, may need CXR early next week prior to flight home to [place] after postop visit with Dr Ball Objective: GENERAL: SKIN: Warm and dry.prevena to chest HEAD: Normocephalic. EYES: No scleral icterus. No injection or drainage. NECK: Supple, trachea midline. No JVD or lymphadenopathy. CARDIOVASCULAR: Regular rate and rhythm without murmurs, gallops, or rubs. RESPIRATORY: Breath sounds equal bilaterally. few crackles left base No accessory muscle use. GASTROINTESTINAL: Abdomen soft, non-tender, nondistended. MUSCULOSKELETAL: No cyanosis, or edema. BACK: Nontender without obvious deformity. No CVA tenderness. Vital Signs Date Time Temp Pulse Resp B/P Pulse Ox O2 Delivery O2 Flow Rate FiO2 10/14/16 08:40 93 21 10/14/16 06:00 64 10/14/16 05:10 16 10/14/16 05:00 66 10/14/16 04:00 78 10/14/16 03:00 69 10/14/16 03:00 98.7 67 20 104/71 92 10/14/16 03:00 92 Room Air 10/14/16 02:00 69 10/14/16 01:00 72 10/14/16 00:00 74 10/13/16 23:00 94 Room Air 10/13/16 23:00 98.3 70 20 114/71 94 10/13/16 23:00 68 10/13/16 22:00 78 10/13/16 21:00 76 10/13/16 20:00 94 Room Air 10/13/16 20:00 80 10/13/16 20:00 98.8 70 20 138/92 94 10/13/16 19:19 94 21 10/13/16 19:00 77 10/13/16 18:27 80 10/13/16 17:03 93 10/13/16 16:05 85 10/13/16 15:48 98.5 75 18 125/72 91 10/13/16 15:43 93 Room Air 10/13/16 15:00 70 10/13/16 14:05 85 10/13/16 13:00 78 10/13/16 12:44 95 Room Air 10/13/16 12:37 Nasal Cannula 2.00 10/13/16 12:22 84 10/13/16 11:15 97.8 70 18 132/87 91 10/13/16 11:00 85 Labs: Laboratory Tests Test 10/14/16 05:48 White Blood Count 7.6 TH/MM3 (4.0-11.0) Red Blood Count 3.65 MIL/MM3 (4.50-5.90) Hemoglobin 11.5 GM/DL (13.0-17.0) Hematocrit 33.1 % (39.0-51.0) Mean Corpuscular Volume 90.6 FL (80.0-100.0) Mean Corpuscular Hemoglobin 31.6 PG (27.0-34.0) Mean Corpuscular Hemoglobin 34.9 % Concent (32.0-36.0) Red Cell Distribution Width 12.5 % (11.6-17.2) Platelet Count 192 TH/MM3 (150-450) Mean Platelet Volume 8.1 FL (7.0-11.0) Result Diagram: 10/14/16 0548 10/13/16 0500 Telemetry: NSR (1) NSTEMI (non-ST elevated myocardial infarction) (2) Bradycardia Plan: resolved (3) S/P CABG x 4 Plan: ASA, statin , low dose BB gentle diuresis pulm toileting nebs, ezpap OOB ambulate small left apical ptx on chest xray [facility] / appointment with Dr Ball next week and then marcello for travel back to [place] Mayrann Calderon Oct 14, 2016 10:28
[2016-10-14] MEDS ORDERED: POTASSIUM CHLORIDE 10 MEQ CONTROLLED RELEASE TAB PO ONE (10:30)
[2016-10-14] MEDS ORDERED: FUROSEMIDE 20 MG/2 ML VIAL IV PUSH ONE (10:30)
[2016-10-14] MEDS ORDERED: ATOR1TAB18 PO (10:36)
[2016-10-14] MEDS ORDERED: PLAV75TA29 PO (10:36)
[2016-10-14] MEDS ORDERED: AMIO200T PO (10:36)
[2016-10-14] MEDS ORDERED: THERM PO (10:36)
[2016-10-14] MEDS ORDERED: Aspirin Chew PO (10:36)
[2016-10-14] MEDS ORDERED: DOCU1CAP39 PO (10:36)
[2016-10-14] MEDS ORDERED: METO25TA3 PO (10:36)
--- NOTE | 2016-10-14 14:08 | HHI.DS ---
Discharge Summary Admission Date Oct 09, 2016 at 18:54 Discharge Date: Oct 14, 2016 Admitting Diagnosis chest pain, r/o ACS (1) NSTEMI (non-ST elevated myocardial infarction) (2) Chest pain in adult Diagnosis: Principal (3) S/P CABG x 4 Diagnosis: Principal Procedures 10/10 1. Urgent Off-pump Coronary Artery Bypass Grafting x 4 with left internal mammary artery (ELLIOTT) to left anterior descending (LAD), reverse saphenous vein graft to the ramus marginalis (RM), reverse saphenous vein graft to the OM1, reverse saphenous vein graft to the distal RCA 2. Right Leg Endoscopic Vein [place] 3. Intraoperative Vein Mapping. Brief History 51/ male developed chest pain while riding his bike, visiting the area 2/2 job, from [place] , ruled in for NSTEMI underwent cardiac cath by Dr Geronimo multivessel CAD/ baseline bradycardia EF 50% surgery : 10/10 1. Urgent Off-pump Coronary Artery Bypass Grafting x 4 with left internal mammary artery (ELLIOTT) to left anterior descending (LAD), reverse saphenous vein graft to the ramus marginalis (RM), reverse saphenous vein graft to the OM1, reverse saphenous vein graft to the distal RCA 2. Right Leg Endoscopic Vein [place] 3. Intraoperative Vein Mapping. CBC/BMP: 10/14/16 0548 10/13/16 0500 Significant Findings Laboratory Tests Test 10/12/16 10/13/16 10/14/16 04:15 05:00 05:48 Red Blood Count 3.88 MIL/MM3 3.65 MIL/MM3 (4.50-5.90) (4.50-5.90) Hemoglobin 12.4 GM/DL 11.5 GM/DL (13.0-17.0) (13.0-17.0) Hematocrit 34.8 % 33.1 % (39.0-51.0) (39.0-51.0) Neutrophils (%) (Auto) 74.8 % (16.0-70.0) Monocytes (%) (Auto) 9.2 % (0.0-8.0) Neutrophils # (Auto) 8.2 TH/MM3 (1.8-7.7) Monocytes # (Auto) 1.0 TH/MM3 (0-0.9) Estimat Glomerular Filtration 83 ML/MIN (>89) 77 ML/MIN (>89) Rate Random Glucose 107 MG/DL (74-106) Calcium Level 8.3 MG/DL 8.3 MG/DL (8.5-10.1) (8.5-10.1) Imaging Last Impressions Chest X-Ray 10/14/16 0600 Signed Impressions: Service Date/Time: September 03:40 - CONCLUSION: Small left apical pneumothorax with 6 mm of separation. Kike Barriga MD Lower Extremity Ultrasound 10/09/16 0000 Signed Impressions: Service Date/Time: Sunday, October 09, 2016 11:01 - CONCLUSION: Venous mapping as delineated above. Corey Carrera MD Carotid Artery Ultrasound 10/09/16 0000 Signed Impressions: Service Date/Time: Sunday, October 09, 2016 10:39 - CONCLUSION: Minimal plaque at the left carotid bulb region. Significant stenosis is not seen. Corey Carrera MD PE at Discharge GENERAL: SKIN: Warm and dry.incision intact and well approximated to mid sternum , incision intact right leg HEAD: Normocephalic. EYES: No scleral icterus. No injection or drainage. NECK: Supple, trachea midline. No JVD or lymphadenopathy. CARDIOVASCULAR: Regular rate and rhythm without murmurs, gallops, or rubs. RESPIRATORY: Breath sounds equal bilaterally. No accessory muscle use. GASTROINTESTINAL: Abdomen soft, non-tender, nondistended. MUSCULOSKELETAL: No cyanosis, or edema. BACK: Nontender without obvious deformity. No CVA tenderness. Hospital Course 10/11 doing well on nasal cannula OOB to chair/ pulm toileting gentle diuresis 10/12 chest drained 200cc/ 12 hrs / leave chest tube n for now remains in NSR HR 78 will start low dose BB gentle diuresis 10/13 chest tube removed without difficulty on room air ambulate decrease amlodipine dose continue low dose BB 10/14 cxr eval , small left apical PTX 6mm 02 sat 94% RA few crackles left base, gentle diuresis eval for dc today, may need CXR early next week prior to flight home to [place] after postop visit with Dr Ball Pt Condition on Discharge: Good Discharge Disposition: Disch w/ Home Health Serv Discharge Instructions DIET: Follow Instructions for: Heart Healthy Diet Activities you can perform: Full Weight Bearing, Shower Only-No Bath Activities to avoid: Strenuous Activity, Driving Additional Activity Instructio: no lifting > 8 lbs or gallon of milk Follow up Referrals: Appointment for Follow Up - 1 Week with Robert Ball MD New Orders: X-RAY CHEST PA & LAT - 1 Week New Medications: Amiodarone (Amiodarone) 200 Mg Tab 200 MG PO Q12HR heart rhythm #28 Ref 0 TAB Atorvastatin (Atorvastatin) 80 Mg Tab 80 MG PO HS Cholesterol Management #30 Ref 1 TAB Clopidogrel (Plavix) 75 Mg Tab 75 MG PO DAILY Blood Clot Prevention #30 Ref 1 TAB Docusate Sodium (Dok) 100 Mg Cap 100 MG PO BID Constipation #60 CAP Metoprolol Tartrate (Metoprolol Tartrate) 25 Mg Tab 12.5 MG PO Q12HR Blood Pressure Management #60 Ref 1 TAB Multiple Vitamins W/ Minerals (Thera M Plus) 1 Tab 1 TAB PO DAILY multi vitamin #30 Ref 1 TAB ([Aspirin Chew]) 81 MG CHEW 81 MG PO DAILY #100 Ref 1 TAB.CHEW Maryann Calderon Oct 14, 2016 14:08
[2016-10-14] MEDS ORDERED: PERC5TAB12 PO (15:56)
== END 2016-10-14 16:23 | disposition home health service (06) | DRG 234 ==
LOC: NEPE 10:41 → NEDA 12:11 → NEPFCDU 13:57 → HCIS 19:40 → HCIN 20:52 → OBSVTOIN 10-09 18:54 → HCVR 10-10 00:05 → HCIN 10-11 12:29
PROVIDERS: ADMIT Thoracic Surgery (Cardiothoracic Vascular Surgery); ATTEND Thoracic Surgery (Cardiothoracic Vascular Surgery)
PROC: 4A023N7 Measurement of Cardiac Sampling and Pressure, Left Heart, Percutaneous Approach (ICD-10-PCS; 2016-10-08)
PROC: B211YZZ Fluoroscopy of Multiple Coronary Arteries using Other Contrast (ICD-10-PCS; 2016-10-08)
PROC: 021209W Bypass Coronary Artery, Three Arteries from Aorta with Autologous Venous Tissue, Open Approach (ICD-10-PCS; 2016-10-10)
PROC: 06BP4ZZ Excision of Right Saphenous Vein, Percutaneous Endoscopic Approach (ICD-10-PCS; 2016-10-10)
PROC: 02100Z9 Bypass Coronary Artery, One Artery from Left Internal Mammary, Open Approach (ICD-10-PCS; principal; 2016-10-10 08:02)
DX: I21.4 Non-ST elevation (NSTEMI) myocardial infarction (principal); I25.10 Atherosclerotic heart disease of native coronary artery without angina pectoris; I51.7 Cardiomegaly
CPT/HCPCS: 71010; 76937; 80048; 82550; 82552; 82948; 83735; 84484; 85014; 85025; 85027; 85610; 85730; 86850; 86900; 86901; 86920; 87641; 93005; 93306; 93454; 93880; 93970; 93998; 94002; 94010; 94150; 94640; 94664; 94667; 94668; C1768; C1769; C1893; G0378; J0131; J1644; J1815; J1885; J1940; J2250; J2370; J2440; J2710; J2720; J2930; J3010; J3370; J3475; J7040; J7050; J7120; P9045; Q9967